=== PATIENT | male | born 1955 | race African-American/Black ===

== ENCOUNTER 2018-06-22 06:34 | Observation (INO) | payer MEDICARE ==
[2018-06-15 09:16] LABS: BASOPHILS % 0.5 % (0.0-1.0); EOSINOPHILS # (AUTO) 0.1 (0.0-0.4); EOSINOPHILS % 2.6 % (0.0-6.0); HEMATOCRIT 45.5 % (38.2-49.6); HEMOGLOBIN 16.1 g/dL (14.0-18.0); LYMPHOCYTES # (AUTO) 1.9 (1.0-3.2); LYMPHOCYTES % 47.7 % (18.0-39.1); MEAN CORPUSCULAR HEMOGLOBIN 33.6 pg (28-32); MEAN CORPUSCULAR HGB CONC 35.4 g/dL (31-35); MONOCYTES # (AUTO) 0.4 (0.2-0.8); MONOCYTES % 10.5 % (4.4-11.3); NEUTROPHILS # (AUTO) 1.5 (2.1-6.9); NEUTROPHILS % 38.4 % (38.7-80.0); PLATELET COUNT 124 x10e3/uL (140-360); RED BLOOD COUNT 4.79 x10e6/uL (4.3-5.7); RED CELL DISTRIBUTION WIDTH 11.5 % (11.7-14.4)
[2018-06-15 09:42] LABS: ANION GAP 12.3 mmol/L (8-16); BLOOD UREA NITROGEN 15 mg/dL (7-26); BUN/CREATININE RATIO 13 (6-25); CALCIUM 9.4 mg/dL (8.4-10.2); CARBON DIOXIDE 29 mmol/L (22-29); CHLORIDE 103 mmol/L (98-107); CREATININE, SERUM 1.15 mg/dL (0.72-1.25); EST GLOMERULAR FILTRATION RATE > 60 ML/MIN (60-); GLUCOSE 89 mg/dL (74-118); POTASSIUM 4.3 mmol/L (3.5-5.1); SODIUM 140 mmol/L (136-145)
--- NOTE | 2018-06-15 09:49 | Diagnostic Imaging Report ---
EXAMINATION: CHEST 2 VIEWS INDICATION: Prostate surgery. Preop COMPARISON: None FINDINGS: TUBES and LINES: None. LUNGS: Lungs are well inflated. Lungs are clear. There is no evidence of pneumonia or pulmonary edema. PLEURA: No pleural effusion or pneumothorax. HEART AND MEDIASTINUM: Postsurgical changes are seen to the heart with sternal hardware and cardiac metallic mesh/stent. The cardiomediastinal silhouette is otherwise unremarkable. BONES AND SOFT TISSUES: No acute osseous lesion. Soft tissues are unremarkable. UPPER ABDOMEN: No free air under the diaphragm. IMPRESSION: No acute thoracic abnormality. Signed by: Dr. Hitesh Spears M.D. on 06/15/2018 9:46 AM
[~2018-06-22] VITALS: Ht 162.6 cm; Wt 68.9 kg
--- OUTSIDE RECORDS SUMMARY | 2018-06-22 06:36 | XMS REPORT | Clinical Summary ---
Author Author [facility] Organization [facility] Address Unknown Phone Unavailable Care Team Providers Care Skin Washer Name Role Phone PCP Unavailable Allergies Comments Active Allergy Reactions Severity Noted Date No Known Allergies 06/14/2008 Medications End Date Status Medication Sig Dispensed Refills Start Date Active ASPIR-81 81 MG TAB take 1 tablet 0 (81 mg) by oral route once daily Active methocarbamol (ROBAXIN) Take by 60 Tab 4 750 mg tabletIndications: mouth. 1-2 1 Spasm of muscle tid prn muscle spasm Active metoprolol (TOPROL-XL) 25 Take by 30 tablet 6 07/22/ mg 24 hr delayed released mouth. 1/2 2 tabletIndications: Aortic pill once per valve disorder day Active loratadine (CLARITIN) 10 Take 1 tablet 90 tablet 3 mg tabletIndications: by mouth 2 Left otitis externa daily. Active omeprazole (PRILOSEC) 20 Take 1 90 capsule 0 mg delayed release capsule by 2 capsuleIndications: GERD mouth daily. (gastroesophageal reflux disease) Active triamcinolone (KENALOG) Apply to 80 g 0 0.025 % topical affected area 2 creamIndications: Penile 2 times discharge daily. Active tamsulosin (FLOMAX) 0.4 Take 1 30 capsule 0 mg extended release capsule by 8 capsuleIndications: mouth daily. Urinary retention Active flavoxATE (URISPAS) 100 Take 1 tablet 30 tablet 0 03/15/201 mg tabletIndications: by mouth 3 8 Urinary retention times daily as needed for Pain. Active Problems Problem Noted Date Urinary retention 03/15/2018 Aortic valve disorder 07/02/2009 History of stroke 07/02/2009 Allergic rhinitis 06/16/2009 Mood disorder 03/24/2009 Spasm of muscle 02/10/2009 Osteoarthrosis, shoulder region 02/10/2009 Completed stroke 06/14/2008 Cerebrovascular disorder 06/14/2008 Encounters Care Team Description Date Type Specialty Munir Piña PA Godoy, Guilherme, MD NO SHOW ENCOUNTER (Primary Dx) 04/25/2018 Office Visit Urology Shawn Pal MD Urinary retention (Primary Dx) 03/15/2018 Emergency Emergency Medicine after 06/21/2017 Immunizations Name Dates Previously Given Next Due Influenza Vaccine 03/08/2011 Family History Medical History Relation Name Comments Stroke Father Diabetes Maternal Grandmother Asthma Sister Hypertension Sister Relation Name Status Comments Father Alive Maternal Grandmother Mother UNKNOWN Sister Sister Social History Date Tobacco Use Types Packs/Day Years Used Never Smoker Smokeless Tobacco: Never Used Alcohol Use Drinks/Week oz/Week Comments No Sex Assigned at Date Recorded Not on file Industry Job Start Date Occupation Not on file Not on file Not on file Travel End Travel History Travel Start No recent travel history available. Last Filed Vital Signs Time Taken Vital Sign Reading 03/15/2018 6:23 PM CDT Blood Pressure 139/94 03/15/2018 6:23 PM CDT Pulse 107 03/15/2018 6:23 PM CDT Temperature 36.9 C (98.4 F) 03/15/2018 6:23 PM CDT Respiratory Rate 16 03/15/2018 6:23 PM CDT Oxygen Saturation 100% - Inhaled Oxygen - Concentration - Weight - - Height - - Body Mass Index - Plan of Treatment Health Maintenance Due Date Last Done Comments Colorectal Cancer Scrn 06/14/2009 06/14/2008 Annual (FIT/FOBT) Age 50 to 75 IMM Influenza Seasonal 02/20/2018Feb to July (>/=19 yrs) Procedures Comments Procedure Name Priority Date/Time Associated Diagnosis CT ABDOMEN AND PELVIS W/O STAT 03/15/2018 Urinary retention CONTRAST- RENAL STONE 2:56 PM CDT BMP POC Routine 03/15/2018 1:05 PM CDT URINE CULTURE STAT 03/15/2018 12:58 PM CDT UA CHEMISTRIES STAT 03/15/2018 12:58 PM CDT CBC/DIFF STAT 03/15/2018 12:50 PM CDT after 06/21/2017 Results * CT ABDOMEN AND PELVIS W/O CONTRAST- RENAL STONE (03/15/2018 2:56 PM CDT) Impressions Performed At IMPRESSION: SMS 1. Enlarged prostate. 2. No acute intra-abdominal abnormalities. 3. Advanced degenerative changes in the lower lumbar spine. Dictated By: Kodi Okeefe DO, 03/15/2018 3:39 PM I have reviewed the study and agree with the findings in this report. Signed By: Jose Antonio Allison MD, 03/15/2018 3:46 PM Narrative Performed At EXAM: CT Abdomen and Pelvis WITHOUT contrast SMS INDICATION: hematuria, urinary retention COMPARISON: None available O difficult distention of the recovery emphysema in a Thank you TECHNIQUE: Abdomen and pelvis were scanned utilizing a multidetector helical scanner from the lung base to the pubic symphysis without administration of IV contrast. Absence of intravenous contrast decreases sensitivity for detection of focal lesions and vascular pathology. Coronal and sagittal reformations were obtained. Routine protocol was performed. IV CONTRAST: None ORAL CONTRAST: None COMPLICATIONS: None RADIATION DOSE: Total DLP: 255 mGy*cm Estimated effective dose: (DLP x 0.015 x size factor) mSv CTDIvol has been reviewed. It is below the limits set by the Radiation Protocol Committee (RPC). FINDINGS: LINES and TUBES: Urinary bladder Horvath catheter in place. LOWER THORAX:Unremarkable HEPATOBILIARY:No focal hepatic lesions. No biliary ductal dilation. GALLBLADDER: No radio-opaque stones or sludge.No wall thickening. SPLEEN: No splenomegaly. PANCREAS: No focal masses or ductal dilatation.Mild nonspecific prominence of the pancreatic tail on image 7 series 2. ADRENALS: No adrenal nodules KIDNEYS/URETERS:Malrotated right kidney. No hydronephrosis. No cystic or solid mass lesions.No stones. GI TRACT: No abnormal distention, wall thickening, or evidence of bowel obstruction. Appendix is not clearly identified. There is however no fat stranding or adenopathy in the right lower quadrant to suggest appendicitis. PELVIC ORGANS/BLADDER: Post instrumentation air within the bladder. The prostate is enlarged measuring 5.1 cm in transverse dimension, and 6.2 cm in length. LYMPH NODES: No lymphadenopathy. VESSELS: Unremarkable. PERITONEUM / RETROPERITONEUM: Small fat-containing periumbilical hernia. BONES: Minimal anterolisthesis of L4 on L5. Minimal retrolisthesis of L5 on S1. Degenerative changes in the lower lumbar spine, with disc height loss and foraminal stenosis at L5-S1. SOFT TISSUES: Tiny fat-containing inguinal hernias. Procedure Note Interface, Rad/Mammog In - 03/15/2018 3:52 PM CDT EXAM: CT Abdomen and Pelvis WITHOUT contrast INDICATION: hematuria, urinary retention COMPARISON: None available O difficult distention of the recovery emphysema in a Thank you TECHNIQUE: Abdomen and pelvis were scanned utilizing a multidetector helical scanner from the lung base to the pubic symphysis without administration of IV contrast. Absence of intravenous contrast decreases sensitivity for detection of focal lesions and vascular pathology. Coronal and sagittal reformations were obtained. Routine protocol was performed. IV CONTRAST: None ORAL CONTRAST: None COMPLICATIONS: None RADIATION DOSE: Total DLP: 255 mGy*cm Estimated effective dose: (DLP x 0.015 x size factor) mSv CTDIvol has been reviewed. It is below the limits set by the Radiation Protocol Committee (RPC). FINDINGS: LINES and TUBES: Urinary bladder Horvath catheter in place. LOWER THORAX: Unremarkable HEPATOBILIARY: No focal hepatic lesions. No biliary ductal dilation. GALLBLADDER: No radio-opaque stones or sludge. No wall thickening. SPLEEN: No splenomegaly. PANCREAS: No focal masses or ductal dilatation. Mild nonspecific prominence of the pancreatic tail on image 7 series 2. ADRENALS: No adrenal nodules KIDNEYS/URETERS: Malrotated right kidney. No hydronephrosis. No cystic or solid mass lesions. No stones. GI TRACT: No abnormal distention, wall thickening, or evidence of bowel obstruction. Appendix is not clearly identified. There is however no fat stranding or adenopathy in the right lower quadrant to suggest appendicitis. PELVIC ORGANS/BLADDER: Post instrumentation air within the bladder. The prostate is enlarged measuring 5.1 cm in transverse dimension, and 6.2 cm in length. LYMPH NODES: No lymphadenopathy. VESSELS: Unremarkable. PERITONEUM / RETROPERITONEUM: Small fat-containing periumbilical hernia. BONES: Minimal anterolisthesis of L4 on L5. Minimal retrolisthesis of L5 on S1. Degenerative changes in the lower lumbar spine, with disc height loss and foraminal stenosis at L5-S1. SOFT TISSUES: Tiny fat-containing inguinal hernias. IMPRESSION IMPRESSION: 1. Enlarged prostate. 2. No acute intra-abdominal abnormalities. 3. Advanced degenerative changes in the lower lumbar spine. Dictated By: Kodi Okeefe DO, 03/15/2018 3:39 PM I have reviewed the study and agree with the findings in this report. Signed By: Jose Antonio Allison MD, 03/15/2018 3:46 PM Performing Organization Address [facility] Phone Number SMS * BMP POC (03/15/2018 1:05 PM CDT) CO2 POC 26 21 - 32 mmol/L [facility] 1 Chloride POC 103 98 - 107 mmol/L BT [facility] 1 Potassium POC 4.2 3.50 - 5.10 mmol/L BT [facility] 1 Sodium POC 140 136 - 145 mmol/L BT [facility] 1 Glucose POC 103 74 - 106 mg/dL [facility] 1 Urea Nitrogen 22 (H) 7 - 18 mg/dL [facility] POC 1 Creatinine POC 1.2 0.6 - 1.3 mg/dL [facility] 1 Calcium Ionized 1.17 1.15 - 1.29 mmol/L [facility] POC 1 Hemoglobin POC 18.4 (H) 14.0 - 18.0 g/dL [facility] 1 Hematocrit POC 54.0 40.0 - 54.0 % [facility] 1 GFR, Estimated >60 mL/min/1.73 m2 BT [facility] 1 GFR, Estim, >60 mL/min/1.73 m2 [facility] Afr-Am 1 Performing Organization Address [facility] Phone Number MISYS [facility] 1 * UA CHEMISTRIES (03/15/2018 12:58 PM CDT) Color Yellow [facility] 3 Clarity Clear BT [facility] 3 Spec [place] 1.020 1.001 - 1.035 BT [facility] 3 pH 9.0 (H) 5 - 8 BT [facility] 3 Protein 3+ (A) NEG BT [facility] 3 Glucose Negative NEG BT [facility] 3 Ketone Negative NEG BT [facility] 3 Bilirubin Negative NEG BT [facility] 3 Nitrate Negative NEG BT [facility] 3 Urobilinogen <1.0 0.2 - 1.0 EU/dL BT [facility] 3 Leukocyte Negative NEG BT [facility] 3 Blood 2+ (A) NEG BT [facility] 3 RBC >182 (H) 0 - 4 /HPF BT [facility] 3 WBC 4 0 - 5 /HPF BT [facility] 3 Epithelial Cell <1 /HPF BT [facility] 3 Mucous Present [facility] 3 Specimen Urine Performing Organization Address City/[facility]/Zipcode Phone Number MISYS [facility] 3 * URINE CULTURE (03/15/2018 12:58 PM CDT) Spec Catheterized urine BT MICROBIOLOGY Description Order Comments None BT MICROBIOLOGY Culture No growth 2 days BT MICROBIOLOGY Report Status Final 03/17/2018 BT MICROBIOLOGY Specimen Urine catheter - CATHETERIZED URINE Performing Organization Address City/[facility] Phone Number MISYS BT MICROBIOLOGY * CBC/DIFF (03/15/2018 12:50 PM CDT) WBC 6.4 4.5 - 12.0 K/uL BT [facility] 2 RBC 5.22 4.60 - 6.20 M/uL [facility] 2 Hemoglobin 17.4 14.0 - 18.0 g/dL BT [facility] 2 Hematocrit 49.7 40.0 - 54.0 % BT [facility] 2 MCV 95 (H) 82 - 92 fL BT [facility] 2 MCH 33.3 (H) 27.0 - 31.0 pg BT [facility] 2 MCHC 35.0 32.0 - 36.0 g/dL BT [facility] 2 RDW 44.0 (H) 35.1 - 43.9 fL BT [facility] 2 Platelet 114 (L) 150 - 400 K/uL BT [facility] 2 Mean Platelet 9.8 9.4 - 12.4 fL [facility] Volume 2 Percent NRBC 0.0 BT [facility] 2 Absolute NRBC 0.00 BT [facility] 2 Neutrophil 68.7 (H) 34.0 - 67.9 % BT [facility] 2 Lymphocyte 23.0 21.8 - 50.0 % BT [facility] 2 Monocyte 7.4 5.3 - 12.0 % BT [facility] 2 Eosinophil 0.3 (L) 0.8 - 5.0 % BT [facility] 2 Basophil 0.3 0.2 - 1.2 % BT [facility] 2 Pct Immat Gran 0.3 0.0 - 0.5 BT [facility] 2 Neutrophil, Abs 4.36 1.78 - 5.36 K/uL BT [facility] 2 Lymphocyte, Abs 1.46 1.32 - 3.57 K/uL BT [facility] 2 Monocyte, Abs 0.47 0.30 - 0.82 K/uL BT [facility] 2 Eosinophil, Abs 0.02 (L) 0.04 - 0.54 K/uL BT [facility] 2 Basophil, Abs 0.02 0.01 - 0.08 K/uL BT [facility] 2 Absol Immat 0.02 0.00 - 0.03 K/uL BT [facility] Gran 2 Specimen Blood Performing Organization Address City/State/Zipcode Phone Number MISYS [facility] 2 after 06/21/2017 Insurance Type Payer Benefit Subscriber ID Effective Phone Address Plan / Dates Group [facility] xxxxxxxx 2010-P [phone] [facility] [id number] [address] [address] [place] [address] HC SELF-PAY HC xxxxxxxxx 2012 [facility] [address]
--- OUTSIDE RECORDS SUMMARY | 2018-06-22 06:37 | XMS REPORT | Clinical Summary ---
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 8 Active azelastine 0.15 % (205.5 INHALE 2 0 mcg) spray,non-aerosol SPRAYS 8 NASALLY 2 TIMES A DAY Active fluticasone (FLONASE) 50 50 sprays by 0 mcg/actuation nasal spray Each Nare 8 route daily. 10/05/2018 Active aspirin 81 mg chewable Chew 1 tablet 30 tablet 11 tablet (81 mg total) 8 daily. 10/05/2018 Active metoprolol succinate XL Take 1 tablet 30 tablet 11 (TOPROL-XL) 25 mg 24 hr (25 mg total) 8 tablet by mouth daily. 09/07/2017 Discontinued valsartan (DIOVAN) 160 MG Take by 0 tablet mouth. 09/07/2017 Discontinued oxybutynin (DITROPAN) 5 Take by 0 MG tablet mouth. 09/07/2017 Discontinued diclofenac (CATAFLAM) 50 Take by 0 MG tablet mouth. 09/07/2017 Discontinued traMADol (ULTRAM) 50 mg Take by 0 tablet mouth. 10/04/2017 Discontinued metoprolol succinate XL Take 50 mg by 5 (TOPROL-XL) 50 mg 24 hr mouth daily. 8 tablet 10/11/2017 traMADol (ULTRAM) 50 mg Take 1 tablet 28 tablet 0 tablet (50 mg total) 8 by mouth every 6 (six) hours as needed for moderate pain for up to 7 days. Active Problems Problem Noted Date Aortic stenosis 09/30/2017 Acute blood loss anemia 09/30/2017 CVA, old, dysarthria 09/30/2017 S/P AVR (aortic valve replacement) 09/30/2017 Aortic valve stenosis 08/24/2017 Overview: Added automatically from request for surgery [id number] Arthritis 08/22/2017 Resolved Problems Problem Noted Date Resolved Date Severe aortic stenosis by prior echocardiogram 08/22/2017 08/24/2017 Encounters Care Team Description Date Type Specialty Albaro Stone DO Urinary retention due to benign prostatic hyperplasia (Primary Dx) 03/15/2018 Emergency Emergency Medicine - 03/16/2018 Edel Friedman, RN 11/10/2017 Orders Only Cardiovascular Kay Carr MD AVR, MICS APPROACH WITH SIZE MEDIUM FAMILIA PERVEVAL AORTIC VALVE CPT 65168 09/30/2017 Surgery Cardiothoracic Surgery Allyson Tierney, MARINE DRAFTER 09/30/2017 Anesthesia Cardiothoracic Surgery Event Kay Carr MD Aortic valve stenosis, etiology of cardiac valve disease unspecified 09/30/2017 Hospital Cardiovascular - Encounter 10/04/2017 Edel Friedman, SALLY 09/19/2017 Telephone Cardiovascular Kya Carr MD Nonrheumatic aortic valve stenosis; Pre-op evaluation; Preoperative respiratory examination 09/08/2017 Hospital Pulmonology Encounter Kay Carr MD Nonrheumatic aortic valve stenosis; Pre-op evaluation; Preoperative respiratory examination 09/08/2017 [facility] Pulmonology Encounter Kay Carr MD Nonrheumatic aortic valve stenosis; Pre-op evaluation 09/08/2017 Hospital Radiology Encounter Kay Carr MD Nonrheumatic aortic valve stenosis; Pre-op evaluation; Preoperative respiratory examination 09/08/2017 Hospital Pulmonology Encounter Kay Carr MD Nonrheumatic aortic valve stenosis; Pre-op evaluation; Aortic valve stenosis, etiology of cardiac valve disease unspecified 09/08/2017 Pre-Admit Pre-Admission Testing Testing Appointment Kay Carr MD Nonrheumatic aortic valve stenosis; Abnormal cardiovascular function study 09/08/2017 Hospital Procedural Cardiology Encounter Milton Morocho MA Aortic valve stenosis, etiology of cardiac valve disease unspecified (Primary Dx) 09/02/2017 Orders Only Cardiovascular Darleen Austin Aortic valve stenosis, etiology of cardiac valve disease unspecified (Primary Dx) 08/24/2017 Orders Only Milton Morocho MA 08/24/2017 Orders Only Cardiovascular Sahil Reid MD Aortic valve stenosis, etiology of cardiac valve disease unspecified (Primary Dx); Nonrheumatic aortic valve stenosis 08/23/2017 Multidisciplina Cardiology ry Visit Edel Friedman RN Nonrheumatic aortic valve stenosis (Primary Dx); Pre-op evaluation; Abnormal cardiovascular function study; Preoperative respiratory examination; Preoperative cardiovascular examination 08/23/2017 Orders Only Cardiovascular Nidia Rahman MD 07/29/2017 Hospital Procedural Cardiology Encounter Nidia Rahman MD Nonrheumatic aortic valve stenosis 07/28/2017 Hospital Procedural Cardiology Encounter Nidia Rahman MD Nonrheumatic aortic valve stenosis (Primary Dx) 07/22/2017 Transcribe Procedural Cardiology Orders Nidia Rahman MD 07/19/2017 Transcribe Access Orders after 06/21/2017 Family History Medical History Relation Name Comments Cancer Father Stroke Father Relation Name Status Comments Father Social History Date Tobacco Use Types Packs/Day Years Used Never Smoker Smokeless Tobacco: Never Used Alcohol Use Drinks/Week oz/Week Comments Yes 1-2 glasses of wine daily Sex Assigned at Date Recorded Not on file Industry Job Start Date Occupation Not on file Not on file Not on file Travel End Travel History Travel Start No recent travel history available. Last Filed Vital Signs Time Taken Vital Sign Reading 03/15/2018 9:45 PM CDT Blood Pressure 164/85 03/15/2018 9:45 PM CDT Pulse 113 03/15/2018 9:45 PM CDT Temperature 36.8 C (98.2 F) 03/15/2018 9:45 PM CDT Respiratory Rate 20 03/16/2018 12:43 AM CDT Oxygen Saturation 98% - Inhaled Oxygen - Concentration 10/03/2017 6:26 AM CDT Weight 65.5 kg (144 lb 8 oz) 03/15/2018 9:45 PM CDT Height 162.6 cm (5' 4") 10/03/2017 6:26 AM CDT Body Mass Index 24.8 Plan of Treatment Health Maintenance Due Date Last Done Comments COLON CANCER SCREENING 07/26/2007 SHINGLES VACCINES (1 of 07/26/2007 2) INFLUENZA VACCINE 12/21/2017 Implants Device Identifier Shelf Expiration Date Model / Serial / Lot Implanted Type Area Manufactur er 03/17/2019 [id number] / / Lead Pace Mycrdl Bipolar Coax Tmpry Cardiac N/A: N/A MEDTRONIC Streamline - [id number] Pacing [place] - Implanted: Qty: 1 on 09/30/2017 by Leads or CARDIAC Kay Carr MD Electrodes RYHTYM or MGMT Accessorie s 02/12/2020 [id number] / [id number] / [id number] Valve Perceval Medium 23mm - Cardiovasc N/A: N/A FAMILIA [id number] - [id number] ular GROUP Implanted: Qty: 1 on 09/30/2017 by Implants Kay Carr MD [id number] / / Sternal Drill-Free, Maxdrive IPM N/A: N/A MERCEDEZ LYNN Locking Screw 2.3mm X 11mm IMPLANT Ti-6al-4v Titanium Alloy - DEVICES [id number] Implanted: Qty: 8 on 09/30/2017 by Kay Carr MD [id number] / / 2.3 X 7mm Sternal Locking Screw - IPM N/A: N/A KLS SHANE [id number] IMPLANT Implanted: Qty: 1 on 09/30/2017 by DEVICES Kay Carr MD [id number] / / Plate, Lock, Sternal, 14 Holes - IPM N/A: N/A KLS SHANE [id number] IMPLANT Implanted: Qty: 1 on 09/30/2017 by DEVICES Kay Carr MD [id number] / / Clip Ligtng Daock Hemoclip Plus W/ Medical N/A: N/A WECK Tape Ti Med Lg - [id number] Clips for CLOSURE Implanted: 09/30/2017 (Quantity not Internal SYSTEMS on file) Use [id number] / / Clip Ligtng Weck Hemoclip Plus W/ Medical N/A: N/A TELEFLEX Tape Ti Med - [id number] Clips for MEDICAL Implanted: 09/30/2017 (Quantity not Internal on file) Use [id number] / / Clip Ligtng Weck Hemoclip Plus W/ Medical N/A: N/A TELEFLEX Tape Ti Med - [id number] Clips for MEDICAL Implanted: 09/30/2017 (Quantity not Internal on file) Use [id number] / / Clip Ligtng Weck Hemoclip Plus W/ Medical N/A: N/A WECK Tape Ti Sm Strngpnt - [id number] Clips for CLOSURE Implanted: 09/30/2017 (Quantity not Internal SYSTEMS on file) Use [id number] / / Clip Ligtng Weck Hemoclip Plus W/ Medical N/A: N/A WECK Tape Ti Sm Strngpnt - [id number] Clips for CLOSURE Implanted: 09/30/2017 (Quantity not Internal SYSTEMS on file) Use [id number] / / Clip Ligtng Weck Hemoclip Plus W/ Medical N/A: N/A TELEFLEX Tape Ti Lg - [id number] Clips for MEDICAL Implanted: 09/30/2017 (Quantity not Internal on file) Use 05/19/2022 [id number] / / [id number] [place] Perph Vasclr Ptfe 1.2x10cm Vascular N/A: N/A BARD 1.65mm - [id number] Graft PERIPHERAL Implanted: Qty: 1 on 09/30/2017 by Kay Mock MD 07/20/2022 [id number] / / [id number] [place] Perph Vasclr Ptfe 1.2x10cm Vascular N/A: N/A BARD 1.65mm - [id number] Graft PERIPHERAL Implanted: Qty: 1 on 09/30/2017 by Kay Mock MD 07/20/2022 [id number] / / [id number] [place] Perph Vasclr Ptfe 1.2x10cm Vascular N/A: N/A BARD 1.65mm - [id number] Graft PERIPHERAL Implanted: Qty: 1 on 09/30/2017 by Kay Mock MD Procedures Comments Procedure Name Priority Date/Time Associated Diagnosis ECHOCARDIOGRAM 2D Routine 10/03/2017 COMPLETE W MMODE SPECTRAL 5:20 PM CDT COLOR DOPPLER (73338) POC GLUCOSE Routine 10/03/2017 12:01 PM CDT MAGNESIUM LEVEL Routine 10/03/2017 9:49 AM CDT PHOSPHORUS LEVEL Routine 10/03/2017 9:49 AM CDT ZZESTIMATED GFR Routine 10/03/2017 9:49 AM CDT COMPREHENSIVE METABOLIC Routine 10/03/2017 PANEL 9:49 AM CDT SMEAR REVIEW Routine 10/03/2017 9:35 AM CDT HC COMPLETE BLD COUNT Routine 10/03/2017 W/AUTO DIFF 9:35 AM CDT POC GLUCOSE Routine 10/03/2017 7:14 AM CDT POC GLUCOSE Routine 10/02/2017 9:07 PM CDT XR CHEST 1 VW PORTABLE Routine 10/02/2017 6:39 PM CDT POC GLUCOSE Routine 10/02/2017 5:18 PM CDT POC GLUCOSE Routine 10/02/2017 2:19 PM CDT POC GLUCOSE Routine 10/02/2017 9:03 AM CDT XR CHEST 1 VW PORTABLE Routine 10/02/2017 7:06 AM CDT SMEAR REVIEW Routine 10/02/2017 6:49 AM CDT ZZESTIMATED GFR Routine 10/02/2017 6:49 AM CDT PHOSPHORUS LEVEL Routine 10/02/2017 6:49 AM CDT IONIZED CALCIUM Routine 10/02/2017 6:49 AM CDT MAGNESIUM LEVEL Routine 10/02/2017 6:49 AM CDT CBC HEMOGRAM Routine 10/02/2017 6:49 AM CDT BASIC METABOLIC PANEL Routine 10/02/2017 6:49 AM CDT POC GLUCOSE Routine 10/01/2017 9:30 PM CDT POC GLUCOSE Routine 10/01/2017 5:24 PM CDT CONSULT CARDIAC REHAB Routine 10/01/2017 PHASE 1 3:25 PM CDT POC GLUCOSE Routine 10/01/2017 11:28 AM CDT POC GLUCOSE Routine 10/01/2017 8:01 AM CDT ECG 12-LEAD Routine 10/01/2017 4:51 AM CDT XR CHEST 1 VW PORTABLE Routine 10/01/2017 4:30 AM CDT POC GLUCOSE Routine 10/01/2017 3:48 AM CDT ZZESTIMATED GFR Routine 10/01/2017 2:12 AM CDT IONIZED CALCIUM Routine 10/01/2017 2:12 AM CDT PHOSPHORUS LEVEL Routine 10/01/2017 2:12 AM CDT MAGNESIUM LEVEL Routine 10/01/2017 2:12 AM CDT BASIC METABOLIC PANEL Routine 10/01/2017 2:12 AM CDT PARTIAL THROMBOPLASTIN Routine 10/01/2017 TIME (PTT) 2:00 AM CDT PROTHROMBIN TIME WITH INR Routine 10/01/2017 2:00 AM CDT HC COMPLETE BLD COUNT Routine 10/01/2017 W/AUTO DIFF 2:00 AM CDT POC GLUCOSE Routine 10/01/2017 12:22 AM CDT MAGNESIUM LEVEL Routine 09/30/2017 10:11 PM CDT POTASSIUM LEVEL Routine 09/30/2017 10:11 PM CDT POC GLUCOSE Routine 09/30/2017 8:02 PM CDT POTASSIUM, SYRINGE Routine 09/30/2017 6:38 PM CDT POC GLUCOSE Routine 09/30/2017 3:59 PM CDT POTASSIUM, SYRINGE Routine 09/30/2017 3:00 PM CDT ECG 12-LEAD Routine 09/30/2017 2:13 PM CDT SURGICAL PATHOLOGY Routine 09/30/2017 REQUEST 12:59 PM CDT FIBRINOGEN Routine 09/30/2017 12:11 PM CDT PARTIAL THROMBOPLASTIN Routine 09/30/2017 TIME (PTT) 12:11 PM CDT PROTHROMBIN TIME WITH INR Routine 09/30/2017 12:11 PM CDT HC COMPLETE BLD COUNT Routine 09/30/2017 W/AUTO DIFF 12:11 PM CDT XR CHEST 1 VW PORTABLE Routine 09/30/2017 12:07 PM CDT POC GLUCOSE Routine 09/30/2017 12:03 PM CDT POC GLUCOSE Routine 09/30/2017 12:02 PM CDT IONIZED CALCIUM, ARTERIAL Routine 09/30/2017 12:00 PM CDT ARTERIAL BLOOD GAS Routine 09/30/2017 12:00 PM CDT HEPATITIS C ANTIBODY Routine 09/30/2017 11:55 AM CDT HEPATITIS BE AG Routine 09/30/2017 11:55 AM CDT HEPATITIS BE AB Routine 09/30/2017 11:55 AM CDT HEPATITIS B SURFACE Routine 09/30/2017 ANTIGEN 11:55 AM CDT HEPATITIS B CORE ANTIBODY Routine 09/30/2017 IGM 11:55 AM CDT HEPATITIS B SURFACE AB, Routine 09/30/2017 QUANTITATIVE 11:55 AM CDT HEPATITIS B CORE ANTIBODY Routine 09/30/2017 TOTAL 11:55 AM CDT ZZESTIMATED GFR Routine 09/30/2017 11:44 AM CDT PHOSPHORUS LEVEL Routine 09/30/2017 11:44 AM CDT MAGNESIUM LEVEL Routine 09/30/2017 11:44 AM CDT BASIC METABOLIC PANEL Routine 09/30/2017 11:44 AM CDT ANESTHESIA INTUBATION Routine 09/30/2017 11:26 AM CDT Procedure Note - Kannan Dickson MD - 09/30/2017 11:26 AM CDT Airway Performed by: KANNAN DICKSON V. Authorized by: KANNAN DICKSON V. Location: OR Difficult Airway: No Anesthesio logist: KANNAN DICKSON V. Resident/C RNA/AA: JERRY REDMOND Performed by: resident/C RNA/AA Preoxygena meenakshi with 100% O2: Yes C-spine Precaution s Maintained Throughout : Yes Mask Ventilatio n: Not attempted Final Airway Type: Endotrache al airway Final Endotrache al Airway: ETT Technique Used: Direct laryngosco py Devices/Me thods Used in Placement: Intubatin g stylet Insertion Site: Oral Blade Type: Mallory Laryngosco pe Blade/Vide olaryngosc ope Blade Size: 4 ETT Size (mm): 8.0 Measured from: Gums ETT to Gums (cm): 23 Placement Verified by: CO2 detection, direct visualizat ion and equal breath sounds Laryngosco pic view: Grade IIa - partial view of glottis Rapid Sequence Induction (RSI): No Modified RSI: No Number of Attempts at Approach: 1 PROTHROMBIN TIME WITH INR STAT 09/30/2017 11:11 AM CDT FIBRINOGEN STAT 09/30/2017 11:11 AM CDT LACTIC ACID, SYRINGE STAT 09/30/2017 11:10 AM CDT SODIUM LEVEL, SYRINGE STAT 09/30/2017 11:10 AM CDT ARTERIAL BLOOD GAS, STAT 09/30/2017 CORRECTED 11:10 AM CDT POTASSIUM, SYRINGE STAT 09/30/2017 11:10 AM CDT HEMOGLOBIN, SYRINGE STAT 09/30/2017 11:10 AM CDT IONIZED CALCIUM, ARTERIAL STAT 09/30/2017 11:10 AM CDT GLUCOSE LEVEL, SYRINGE STAT 09/30/2017 11:10 AM CDT TRANSFUSE PLATELETS Routine 09/30/2017 11:07 AM CDT TRANSFUSE PLATELETS Routine 09/30/2017 11:02 AM CDT ARTERIAL BLOOD GAS, STAT 09/30/2017 CORRECTED 10:27 AM CDT SODIUM LEVEL, SYRINGE STAT 09/30/2017 10:27 AM CDT GLUCOSE LEVEL, SYRINGE STAT 09/30/2017 10:27 AM CDT POTASSIUM, SYRINGE STAT 09/30/2017 10:27 AM CDT HEMOGLOBIN, SYRINGE STAT 09/30/2017 10:27 AM CDT IONIZED CALCIUM, ARTERIAL STAT 09/30/2017 10:27 AM CDT PA CATHETER Routine 09/30/2017 10:13 AM CDT Procedure Note - Mercedez [place] - 09/30/2017 10:13 AM CDT PA catheter Performed by: KANNAN DICKSON V. Authorized by: KANNAN DICKSON V. Patient Location: OR Start Time: 09/30/2017 7:40 AM End Time: 09/30/2017 7:45 AM Staff: Anesthesio logist: KANNAN DICKSON V. Other Staff: MERCEDEZ CAMARILLO Performed by: Other staff Preprocedu re: patient identified , IV checked, site and side verified, risks and benefits discussed, procedure verified, surgical consent complete, patient position confirmed, monitors and equipment checked and pre-op evaluation complete MSBT: antiseptic used, all elements of maximal sterile barrier technique followed, hand hygiene performed, cap/gown used by other personnel and solutions labeled TIme Out Performed: 09/30/2017 7:40 AM Procedure details: PA Catheter Type: VIDEO ENGINEER PA Catheter Size: 8.5 PA Catheter Side: Right PA Catheter Site: Internal jugular PA Catheter placed: PA Catheter placed without difficulty Waveform: PA Catheter wave confirmed Ports flushed: All ports flushed pre-proced ure Balloon checked: Balloon checked prior to insertion Post-proc edure: Patient tolerance: Patient tolerated the procedure well with no immediate complicati ons HEMATOCRIT STAT 09/30/2017 10:09 AM CDT PROTHROMBIN TIME WITH INR STAT 09/30/2017 10:09 AM CDT PLATELET COUNT STAT 09/30/2017 10:09 AM CDT FIBRINOGEN STAT 09/30/2017 10:09 AM CDT ARTERIAL BLOOD GAS, STAT 09/30/2017 CORRECTED 10:09 AM CDT SODIUM LEVEL, SYRINGE STAT 09/30/2017 10:09 AM CDT HEMOGLOBIN, SYRINGE STAT 09/30/2017 10:09 AM CDT POTASSIUM, SYRINGE STAT 09/30/2017 10:09 AM CDT GLUCOSE LEVEL, SYRINGE STAT 09/30/2017 10:09 AM CDT IONIZED CALCIUM, ARTERIAL STAT 09/30/2017 10:09 AM CDT CENTRAL LINE Routine 09/30/2017 9:23 AM CDT Procedure Note - Mercedez [place] - 09/30/2017 9:23 AM CDT Central line Performed by: KANNAN DICKSON V. Authorized by: KANNAN DICKSON V. Patient Location: OR Start Time: 09/30/2017 7:35 AM End Time: 09/30/2017 7:40 AM Staff: Anesthesio logist: KANNAN DICKSON V. Other Staff: MERCEDEZ CAMARILLO Performed by: Other staff Preprocedu re:patient identified , IV checked, site and side verified, risks and benefits discussed, procedure verified, surgical consent complete, patient position confirmed, monitors and equipment checked and pre-op evaluation complete MSBT: antiseptic used during central venous catheter insertion, all elements of maximal sterile barrier technique followed, hand hygiene performed prior to central venous catheter insertion, cap/gown used by other personnel during central venous catheter insertion, solutions labeled and all ports not used during insertion clamped TIme Out Performed: 09/30/2017 7:35 AM Indication s: Indication s: Central pressure monitoring and vascular access Anesthesia : Anesthesia : General Procedure details: Patient position: Trendelenb urg Catheter Type: Triple lumen Catheter Size: 9 Fr Catheter Site: internal jugular vein Catheter site laterality : Right Pre-proced ure: Landmarks identified Ultrasound guidance used: Yes Ultrasound image saved: Yes Number of attempts: 1 Successful placement: Yes Guidewire removal: Guidewire removal is confirmed Guidewire removal witnessed by: KANNAN DICKSON V. Post-proce dure: Post-proce dure: line sutured, sterile dressing applied per protocol and ports flushed with saline Post-proce dure: Blood cleaned with CHG and sterile caps on all hubs Assessment : Blood return through all ports and free fluid flow Patient tolerance: Patient tolerated the procedure well with no immediate complicati ons ARTERIAL BLOOD GAS, STAT 09/30/2017 CORRECTED 9:21 AM CDT POTASSIUM, SYRINGE STAT 09/30/2017 9:21 AM CDT SODIUM LEVEL, SYRINGE STAT 09/30/2017 9:21 AM CDT IONIZED CALCIUM, ARTERIAL STAT 09/30/2017 9:21 AM CDT HEMOGLOBIN, SYRINGE STAT 09/30/2017 9:21 AM CDT GLUCOSE LEVEL, SYRINGE STAT 09/30/2017 9:21 AM CDT ANESTHESIA SANDRA Routine 09/30/2017 8:51 AM CDT Procedure Note - Kannan Dickson MD - 09/30/2017 8:51 AM CDT Procedure Performed: SANDRA Start Time: End Time: Preanesth esia Checklist: Patient identified , IV assessed, risks and benefits discussed, monitors and equipment assessed, procedure being performed at surgeon's request, anesthesia consent obtained. General Procedure Informatio n Diagnostic Indication s for Echo: assessment of ascending aorta, assessment of surgical repair, defect repair evaluation , hemodynami c monitoring and suspected pericardia l effusion Physician Requesting Echo: NAA, KAY WILLIE Location performed: OR Intubated Bite block placed Heart visualized Probe Insertion: Easy Probe Type: Multiplane Modalities : 2D only, color flow mapping, continuous wave Doppler and pulse wave Doppler Echocardi ographic and Doppler Measuremen ts Ventricle s Right Ventricle: Cavity size normal. Hypertroph y not present. Thrombus not present. Global function normal. Left Ventricle: Cavity size normal. Hypertroph y present. Thrombus not present. Global Function normal. Ejection Fraction 55%. Ventricul ar Regional Function: 1- Basal Anterosept al: normal 2- Basal Anterior: normal 3- Basal Anterolate ral: normal 4- Basal Inferolate ral: normal 5- Basal Inferior: normal 6- Basal Inferosept al: normal 7- Mid Anterosept al: normal 8- Mid Anterior: normal 9- Mid Anterolate ral: normal 10- Mid Inferolate ral: normal 11- Mid Inferior: normal 12- Mid Inferosept al: normal 13- Apical Anterior: normal 14- Apical Lateral: normal 15- Apical Inferior: normal 16- Apical Septal: normal 17- [place]: normal Valves Aortic Valve: Annulus calcified. Stenosis severe. Regurgitat ion +3. Leaflets bicuspid. Leaflet motions restricted . Mitral Valve: Annulus normal. Stenosis not present. Regurgitat ion +1. Leaflets normal. Leaflet motions normal. Tricuspid Valve: Annulus normal. Stenosis not present. Regurgitat ion +1. Leaflets normal. Leaflet motions normal. Pulmonic Valve: Annulus normal. Stenosis not present. Aorta Ascending Aorta: Size normal. Dissection not present. Plaque thickness less than 3 mm. Mobile plaque not present. Aortic Arch: Size normal. Dissection not present. Plaque thickness less than 3 mm. Mobile plaque not present. Descending Aorta: Size normal. Dissection not present. Plaque thickness less than 3 mm. Mobile plaque not present. Atria Right Atrium: Size normal. Spontaneou s echo contrast not present. Thrombus not present. Tumor not present. Device not present. Left Atrium: Size normal. Spontaneou s echo contrast not present. Thrombus not present. Tumor not present. Device not present. Left atrial appendage normal. Septa Atrial Septum: Intra-atri al septal morphology normal. Ventricul ar Septum: Intra-vent ricular septum morphology normal. Diastolic Function Measuremen ts: Diastolic Dysfunctio n Grade=I E=30.9 ms A=65 ms E/A Ratio=0.5 YA=036 ms S/D= IVRT= Other Findings Pericardiu m: normal Pleural Effusion: none Pulmonary Arteries: normal Pulmonary Venous Flow: normal Anesthesi a Informatio n Performed with residents Anesthesio logist: KANNAN DICKSON V. Resident/ PILL COATER/AA: MARTHA HUGGINS Echocardi ogram Comments: LVEF normal. EF 60%. There is concentric LVH. RVEF normal There is a bicuspid aortic valve with severe . Mean PG 57 mmhg. There is moderate AI, AI jet is 50% of LVOT, VC 5 mm. P1/2T 400 Mild MR, Mild TR. No PI There is no PFO There is no clot in DARNELL. There is no pleural effusion, pericardia l effusion or aortic dissection There is Grade I diastolic dysfunctio n. Postproce dure SANDRA - s/p MICS AVR - perceval valve #medium - no PVL, leaflets open well , mn gradient 7 mm HG, aorta intact postdecann ulation, other valves no changes Findings discussed with surgeon ARTERIAL LINE Routine 09/30/2017 8:03 AM CDT Procedure Note - Mercedez [place] - 09/30/2017 8:03 AM CDT Arterial line Performed by: KANNAN DICKSON V. Authorized by: KANNAN DICKSON V. Patient Location: Pre-op Start Time: 09/30/2017 6:50 AM End Time: 09/30/2017 6:55 AM Staff: Anesthesio logist: KANNAN DICKSON V. Resident/C RNA/AA: JERRY REDMOND Other Staff: MERCEDEZ CAMARILLO Pre-proced ure: patient identified , IV checked, site and side verified, risks and benefits discussed, procedure verified, surgical consent complete, patient position confirmed, monitors and equipment checked and pre-op evaluation complete MSBT: antiseptic used, all elements of maximal sterile barrier technique followed, hand hygiene performed, cap/gown used by other personnel and solutions labeled TIme Out Performed: 09/30/2017 6:38 AM Indication s: Indication s: multiple ABGs and hemodynami c monitoring Anesthesia : Anesthesia : Local infiltrati on Procedure Details: Arterial Line placement: Placed pre-induct ion Line placement site: Radial Line placement side: Right Arterial line gauge: 20 G Number of attempts: 2 Ultrasound guidance used: No Post-proce dure: Post-proce dure: Sterile dressing applied Post procedure circulatio n, sensation, movement: Normal Patient tolerance: Patient tolerated the procedure well with no immediate complicati ons Notes: One attempt by AA student one by resident SODIUM LEVEL, SYRINGE STAT 09/30/2017 7:58 AM CDT ARTERIAL BLOOD GAS, STAT 09/30/2017 CORRECTED 7:58 AM CDT POTASSIUM, SYRINGE STAT 09/30/2017 7:58 AM CDT HEMOGLOBIN, SYRINGE STAT 09/30/2017 7:58 AM CDT IONIZED CALCIUM, ARTERIAL STAT 09/30/2017 7:58 AM CDT GLUCOSE LEVEL, SYRINGE STAT 09/30/2017 7:58 AM CDT TN AN ELECTIVE Routine 09/30/2017 ENDOTRACHEAL AIRWAY 7:47 AM CDT Procedure Note - [place] - 09/30/2017 7:47 AM CDT Airway Date/Time: 09/30/2017 7:32 AM Performed by: KANNAN DICKSON V. Authorized by: KANNAN DICKSON V. Location: OR Urgency: Elective Difficult Airway: No Anesthesio logist: KANNAN DICKSON V. Resident/C RNA/AA: JERRY REDMOND Preoxygena meenakshi with 100% O2: Yes C-spine Precaution s Maintained Throughout : Yes Mask Ventilatio n: Easy mask Final Airway Type: Endotrache al airway Final Endotrache al Airway: ETT - double lumen left Cuffed: Yes Technique Used: Direct laryngosco py Devices/Me thods Used in Placement: Intubatin g stylet Insertion Site: Oral Blade Type: Mallory Laryngosco pe Blade/Vide olaryngosc ope Blade Size: 3 ETT Double Lumen (fr): 39 Cuff at minimum occlusion pressure: Yes Measured from: Lips ETT to Lips (cm): 29 Placement Verified by: CO2 detection Laryngosc opic view: Grade IIa - partial view of glottis Rapid Sequence Induction (RSI): No Number of Attempts at Approach: 2 PREPARE PLATELET PHERESIS STAT 09/30/2017 6:32 AM CDT PREPARE RBC STAT 09/30/2017 6:32 AM CDT TYPE AND SCREEN STAT 09/30/2017 6:32 AM CDT XR CHEST 2 VW Routine 09/08/2017 Nonrheumatic aortic valve 12:57 PM CDT stenosis Pre-op evaluation RETICULOCYTE COUNT Routine 09/08/2017 Aortic valve stenosis, 12:10 PM CDT etiology of cardiac valve disease unspecified HEMOGLOBIN, PLASMA Routine 09/08/2017 Aortic valve stenosis, 12:10 PM CDT etiology of cardiac valve disease unspecified B NATRIURETIC PEPTIDE Routine 09/08/2017 Nonrheumatic aortic valve 12:10 PM CDT stenosis Pre-op evaluation URINALYSIS SCREEN AND Routine 09/08/2017 Nonrheumatic aortic valve MICROSCOPY, WITH REFLEX 12:00 PM CDT stenosis TO CULTURE Pre-op evaluation URINE CULTURE Routine 09/08/2017 12:00 PM CDT ZZESTIMATED GFR Routine 09/08/2017 11:26 AM CDT TYPE AND SCREEN Routine 09/08/2017 Nonrheumatic aortic valve 11:26 AM CDT stenosis Pre-op evaluation HEMOGLOBIN A1C Routine 09/08/2017 Nonrheumatic aortic valve 11:26 AM CDT stenosis Pre-op evaluation PARTIAL THROMBOPLASTIN Routine 09/08/2017 Nonrheumatic aortic valve TIME (PTT) 11:26 AM CDT stenosis Pre-op evaluation PROTHROMBIN TIME WITH INR Routine 09/08/2017 Nonrheumatic aortic valve 11:26 AM CDT stenosis Pre-op evaluation COMPREHENSIVE METABOLIC Routine 09/08/2017 Nonrheumatic aortic valve PANEL 11:26 AM CDT stenosis Pre-op evaluation HC COMPLETE BLD COUNT Routine 09/08/2017 Nonrheumatic aortic valve W/AUTO DIFF 11:26 AM CDT stenosis Pre-op evaluation LDH Routine 09/08/2017 Aortic valve stenosis, 11:20 AM CDT etiology of cardiac valve disease unspecified HAPTOGLOBIN Routine 09/08/2017 Aortic valve stenosis, 11:20 AM CDT etiology of cardiac valve disease unspecified VITAMIN B12 LEVEL Routine 09/08/2017 Nonrheumatic aortic valve 11:20 AM CDT stenosis Pre-op evaluation TOTAL IRON BINDING Routine 09/08/2017 Nonrheumatic aortic valve CAPACITY 11:20 AM CDT stenosis Pre-op evaluation LIPID PANEL Routine 09/08/2017 Nonrheumatic aortic valve 11:20 AM CDT stenosis Pre-op evaluation FOLATE LEVEL Routine 09/08/2017 Nonrheumatic aortic valve 11:20 AM CDT stenosis Pre-op evaluation FERRITIN LEVEL Routine 09/08/2017 Nonrheumatic aortic valve 11:20 AM CDT stenosis Pre-op evaluation US CAROTID DUPLEX Routine 09/08/2017 Nonrheumatic aortic valve BILATERAL 10:24 AM CDT stenosis Pre-op evaluation Preoperative cardiovascular examination CV CTA TAVR WORKUP (CTA Routine 09/08/2017 Nonrheumatic aortic valve CORONARY,CTA THORACIC 9:38 AM CDT stenosis AORTA,CTA ABDOMEN PELVIS) Abnormal cardiovascular W CONTRAST function study ESTIMATED GFR Routine 09/08/2017 9:02 AM CDT POC CREATININE Routine 09/08/2017 9:02 AM CDT ECG 12-LEAD Routine 08/23/2017 Aortic valve stenosis, 2:09 PM CDT etiology of cardiac valve disease unspecified ECHOCARDIOGRAM 2D Routine 07/29/2017 Nonrheumatic aortic valve 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 Stat.:[facility] Study Status:Final Echo Event ID:[id number] Order ID:[id number] Reason for Study:Prosthetic valves/ AV History / Clinical:Dizziness Procedures:2D Echo, Colorflow Doppler Race:C SUMMARY: LV EF is normal. Septal motion is paradoxical. Beat to beat variability/ tachycardia noted; Estimated EF is 50-60%. Unable to assess RV systolic function. Bioprosthetic aortic valve. Normal Bioprosthetic valve velocity and gradient. Unable to assess diastolic function. FINDINGS: LV: LV size is normal. There is moderate concentric LV hypertrophy.LV EF is normal. Overall wall motion is normal.Estimated EF is 50-60%. Septal motion is paradoxical.Beat to beat variability/ tachycardia noted; RV: RV size is grossly normal. Unable to assess RV systolic function. LA: LA size is grossly normal. RA: RA volume is upper limits of normal. AO: Aortic root diameter is normal. JEEVAN: No pericardial effusion. Extra echoes within the pericardial spacesuggesting presence of adipose tissue or fibro-adhesivematerial. AV: Bioprosthetic aortic valve. Normal Bioprosthetic valve velocityand gradient. Surgical Prosthetic AV Doppler velocityindex is 0.37 (normal>0.25). MV: Mild mitral annular calcification. PV: No structural PV abnormalities noted. Mild pulmonic regurgitation. TV: No structural TV abnormalities noted. Mild tricuspid regurgitation Renteria: Unable to assess diastolic function. Other:Insufficient TR jet to estimate PA systolic pressure. MEASUREMENTS: 2D Parasternal Long Peosta LVOT 2 cmLA Ds3.1 cm LVIDd3.4 cmIndex2 cm/m Ao An1.9 cm LVIDs2.2 cmAo Rtd 3.1 cm Index1.8 cm/m LV%fs 34.9 % LV Weya797.5 g(122-174) IVSd 1.6 cmLVM Pgfba238.6 g/m2 LVPWd1.8 cmRWT1.1 LA Sng Plane LA Area 13.6 cm2(8.8-23.4) LA Vol25.9 ml Index15.2 ml/m LA LngAx 5.9 cm RA Sng Plane RA Area 17.6 cm2(8.3-19.5) RA Vol48.7 ml Index28.6 ml/m RA LngAx 5.3 cm DOPPLER AV For Flow/CORETTA AV pkVel 277.5 cm/s (100-170) AV AC/ET 0.5 AV mnVel 185.8 cm/Celeste TVI38.1 cm AV pkPG 30.8 mmHgAVpkAcRt 4198.8 cm/s2 AV Mean G 17.1 mmHgAV PvDq9732.5 cm/s2 AV AC 94 msec (83-118) AV Area1.2 cm2(3-5) AV ET205 msec LVOT For Flow LVOT Area3.1 cm2 LVOT SV 44.3 ml LVOTpkVel 94.7 cm/sHR 110.7 bpm LVOTpkPG 3.6 mmHgLVOT CO4.9 l/min LVOTmnPG 2.2 mmHgLVOT CI2.9 l/m/m2 LVOT TVI14.1 cm Signed 10/04/2017 09:53 AM Majo Oquendo MD Procedure Note Interface, Radiology Results In - 10/04/2017 9:53 AM CDT Echocardiography Report [address] [place] [address] Pat.Name: LEROY BOLAÑOS Pat.ID: [id number] .Date: 10/03/2017 Refer.MD: KAY CARR MD Exam Time: 2:10:00 PM Study Type:Routine Echo Height: 64in Weight: 144lb BSA: 1.7 m2 Age: 5 1955,62Y Sex: MALE BP: 113/68 HR: 113 bpm Sonogrphr: LIVAN Blackburn Pat. Stat.:Inpatient Room: [facility] Study Status:Final Echo Event ID:[id number] Order ID: [id number] Reason for Study:Prosthetic valves/ AV History / Clinical:Dizziness Procedures:2D Echo, Colorflow Doppler Race: C SUMMARY: LV EF is normal. Septal motion is paradoxical. Beat to beat variability/ tachycardia noted; Estimated EF is 50-60%. Unable to assess RV systolic function. Bioprosthetic aortic valve. Normal Bioprosthetic valve velocity and gradient. Unable to assess diastolic function. FINDINGS: LV: LV size is normal. There is moderate concentric LV hypertrophy. LV EF is normal. Overall wall motion is normal. Estimated EF is 50-60%. Septal motion is paradoxical. Beat to beat variability/ tachycardia noted; RV: RV size is grossly normal. Unable to assess RV systolic function. LA: LA size is grossly normal. RA: RA volume is upper limits of normal. AO: Aortic root diameter is normal. JEEVAN: No pericardial effusion. Extra echoes within the pericardial space suggesting presence of adipose tissue or fibro-adhesive material. AV: Bioprosthetic aortic valve. Normal Bioprosthetic valve velocity and gradient. Surgical Prosthetic AV Doppler velocity index is 0.37 (normal>0.25). MV: Mild mitral annular calcification. PV: No structural PV abnormalities noted. Mild pulmonic regurgitation. TV: No structural TV abnormalities noted. Mild tricuspid regurgitation Renteria: Unable to assess diastolic function. Other: Insufficient TR jet to estimate PA systolic pressure. MEASUREMENTS: 2D Parasternal Long Peosta LVOT 2 cm LA Ds 3.1 cm LVIDd 3.4 cm Index 2 cm/m Ao An 1.9 cm LVIDs 2.2 cm Ao Rtd 3.1 cm Index 1.8 cm/m LV%fs 34.9 % LV Mass 225.5 g (122-174) IVSd 1.6 cm LVM Index 132.6 g/m2 LVPWd 1.8 cm RWT 1.1 LA Sng Plane LA Area 13.6 cm2 (8.8-23.4) LA Vol 25.9 ml Index 15.2 ml/m LA LngAx 5.9 cm RA Sng Plane RA Area 17.6 cm2 (8.3-19.5) RA Vol 48.7 ml Index 28.6 ml/m RA LngAx 5.3 cm DOPPLER AV For Flow/CORETTA AV pkVel 277.5 cm/s (100-170) AV AC/ET 0.5 AV mnVel 185.8 cm/s AV TVI 38.1 cm AV pkPG 30.8 mmHg AVpkAcRt 4198.8 cm/s2 AV Mean G 17.1 mmHg AV DeRt 1352.5 cm/s2 AV AC 94 msec (83-118) AV Area 1.2 cm2 (3-5) AV ET 205 msec LVOT For Flow LVOT Area 3.1 cm2 LVOT SV 44.3 ml LVOTpkVel 94.7 cm/s HR 110.7 bpm LVOTpkPG 3.6 mmHg LVOT CO 4.9 l/min LVOTmnPG 2.2 mmHg LVOT CI 2.9 l/m/m2 LVOT TVI 14.1 cm Signed 10/04/2017 09:53 AM Majo Oquendo MD Performing Organization Address [facility] Phone Number [address] [address] * POC glucose (10/03/2017 12:01 PM CDT) Only the most recent of 16 results within the time period is included. POC glucose 104 (H) 65 - 99 mg/dL [facility] DEPARTMENT OF Comment: PATHOLOGY [facility] Notified RN GENOMIC MEDICINE Meter ID: [id number] Casserole Preparer: Kwadwo Cat Performing Organization Address [facility] Phone Number [facility] [place] [address] PATHOLOGY AND GENOMIC MEDICINE * Estimated GFR (10/03/2017 9:49 AM CDT) Only the most recent of 5 results within the time period is included. GFR Non Af Amer 68 mL/min/1.73 m2 [facility] DEPARTMENT OF PATHOLOGY AND GENOMIC MEDICINE GFR Af Amer 83 mL/min/1.73 m2 [facility] DEPARTMENT OF Comment: PATHOLOGY AND Chronic kidney disease: <60 GENOMIC MEDICINE mL/min/1.73m2 Kidney failure: <15 mL/min/1.73m2 The estimated GFR is calculated from the IDMS-traceable Modification of Diet in Renal Disease Equation. The accuracy of the calculation is poor when the creatinine is normal. Calculated values >90 mL/min/1.73m2 are not reported. This equation has not been validated in children (<18 years), women, the elderly (>70 years), or ethnic groups other than Caucasians and Americans. Specimen Plasma specimen Performing Organization Address [facility] Phone Number [facility] [place] [place] [address] PATHOLOGY AND GENOMIC MEDICINE * Phosphorus level (10/03/2017 9:49 AM CDT) Only the most recent of 4 results within the time period is included. Phosphorus 1.4 (L) 2.4 - 4.5 mg/dL [facility] DEPARTMENT OF PATHOLOGY AND GENOMIC MEDICINE Specimen Plasma specimen Narrative Performed At added MG/PHOS per Chente Bowers COMM[employer] 10/03/2017 10:55 by COUNT INCLUDES THE [facility] DEPARTMENT OF PATHOLOGY AND GENOMIC MEDICINE Performing Organization Address City/[facility] Hospital[facility] [place] [address] PATHOLOGY AND GENOMIC [facility] * Magnesium level (10/03/2017 9:49 AM CDT) Only the most recent of 5 results within the time period is included. Magnesium 1.9 1.6 - 2.4 mg/dL [facility] DEPARTMENT OF PATHOLOGY AND GENOMIC MEDICINE Specimen Plasma specimen Narrative Performed At added MG/PHOS per Chente Bowers [employer] 10/03/2017 10:55 by COUNT INCLUDES THE [facility] DEPARTMENT OF PATHOLOGY AND GENOMIC MEDICINE Performing Organization Address [facility] Hospital[facility] [place] [address] PATHOLOGY AND SED Web [facility] * Comprehensive metabolic panel (10/03/2017 9:49 AM CDT) Only the most recent of 2 results within the time period is included. Sodium 135 135 - 148 mEq/L [facility] DEPARTMENT OF PATHOLOGY AND GENOMIC MEDICINE Potassium 4.4 3.5 - 5.0 mEq/L [facility] DEPARTMENT OF PATHOLOGY AND GENOMIC MEDICINE Chloride 96 (L) 98 - 112 mEq/L [facility] DEPARTMENT OF PATHOLOGY AND GENOMIC MEDICINE CO2 27 24 - 31 mEq/L [facility] DEPARTMENT OF PATHOLOGY AND GENOMIC MEDICINE Anion gap 12@ANIO 7 - 15 mEq/L [facility] DEPARTMENT OF PATHOLOGY AND GENOMIC MEDICINE BUN 17 8 - 23 mg/dL [facility] DEPARTMENT OF PATHOLOGY AND GENOMIC MEDICINE Creatinine 1.1 0.7 - 1.2 mg/dL [facility] DEPARTMENT OF PATHOLOGY AND GENOMIC MEDICINE Glucose 188 (H) 65 - 99 mg/dL [facility] DEPARTMENT OF PATHOLOGY AND GENOMIC MEDICINE Calcium 9.1 8.8 - 10.2 mg/dL [facility] DEPARTMENT OF PATHOLOGY AND GENOMIC MEDICINE Protein 6.7 6.3 - 8.3 g/dL [facility] DEPARTMENT OF Comment: PATHOLOGY AND GENOMIC MEDICINE 4.6-7.0 g/dL 1 week 4.4-7.6 g/dL 7 months-1year 5.1-7.3 g/dL 1-2 years5.6-7 .5 g/dL >3 years6.0-8 .0 g/dL 18-150 6.3-8.3 g/dL Albumin 2.9 (L) 3.5 - 5.0 g/dL [facility] DEPARTMENT OF PATHOLOGY AND GENOMIC MEDICINE A/G ratio 0.8 0.7 - 3.8 [facility] DEPARTMENT OF PATHOLOGY AND GENOMIC MEDICINE Alkaline phosphatase 38 (L) 40 - 129 U/L [facility] DEPARTMENT OF PATHOLOGY AND GENOMIC MEDICINE AST 36 10 - 50 U/L [facility] DEPARTMENT OF PATHOLOGY AND GENOMIC MEDICINE ALT 19 5 - 50 U/L [facility] DEPARTMENT OF PATHOLOGY AND GENOMIC MEDICINE Total bilirubin 0.9 0.0 - 1.2 mg/dL [facility] DEPARTMENT OF PATHOLOGY AND GENOMIC MEDICINE Specimen Plasma specimen Performing Organization Address City/[facility] Hospital[facility] [place] [address] PATHOLOGY AND GENOMIC MEDICINE * Smear review (10/03/2017 9:35 AM CDT) Only the most recent of 2 results within the time period is included. Platelet slide review Mkd decreased (A) [facility] DEPARTMENT OF PATHOLOGY AND GENOMIC MEDICINE Anisocytosis Moderate [facility] DEPARTMENT OF PATHOLOGY AND GENOMIC MEDICINE Polychromasia Moderate [facility] DEPARTMENT OF PATHOLOGY AND GENOMIC MEDICINE Ovalocytes Moderate [facility] DEPARTMENT OF PATHOLOGY AND GENOMIC MEDICINE Narrative Performed At added MG/PHOS per Chente Bowers COMMISS[employer]ER [employer]IATION 10/03/2017 10:55 by COUNT INCLUDES THE [facility] DEPARTMENT OF PATHOLOGY AND GENOMIC MEDICINE Performing Organization Address City/[facility] Phone Number [facility] DEPARTMENT OF [address] [place], [place] [phone] PATHOLOGY AND GENOMIC MEDICINE * CBC with platelet and differential (10/03/2017 9:35 AM CDT) Only the most recent of 4 results within the time period is included. WBC 8.09 4.50 - 11.00 k/uL [facility] DEPARTMENT OF PATHOLOGY AND GENOMIC MEDICINE RBC 3.50 (L) 4.40 - 6.00 m/uL [facility] DEPARTMENT OF PATHOLOGY AND GENOMIC MEDICINE HGB 11.7 (L) 14.0 - 18.0 g/dL [facility] DEPARTMENT OF PATHOLOGY AND GENOMIC MEDICINE HCT 34.0 (L) 41.0 - 51.0 % [facility] DEPARTMENT OF PATHOLOGY AND GENOMIC MEDICINE MCV 97.1 82.0 - 100.0 fL [facility] DEPARTMENT OF PATHOLOGY AND GENOMIC MEDICINE MCH 33.4 27.0 - 34.0 pg [facility] DEPARTMENT OF PATHOLOGY AND GENOMIC MEDICINE MCHC 34.4 31.0 - 37.0 g/dL [facility] DEPARTMENT OF PATHOLOGY AND GENOMIC MEDICINE RDW - SD 40.7 37.0 - 55.0 fL [facility] DEPARTMENT OF PATHOLOGY AND GENOMIC MEDICINE MPV 11.6 8.8 - 13.2 fL [facility] DEPARTMENT OF PATHOLOGY AND GENOMIC MEDICINE Platelet count 29 (L) 150 - 400 k/uL [facility] DEPARTMENT OF PATHOLOGY AND GENOMIC MEDICINE Nucleated RBC 0.00 /100 WBC [facility] DEPARTMENT OF PATHOLOGY AND GENOMIC MEDICINE Neutrophils 79.6 (H) 39.0 - 69.0 % [facility] DEPARTMENT OF PATHOLOGY AND GENOMIC MEDICINE Lymphocytes 12.6 (L) 25.0 - 45.0 % [facility] DEPARTMENT OF PATHOLOGY AND GENOMIC MEDICINE Monocytes 7.0 0.0 - 10.0 % [facility] DEPARTMENT OF PATHOLOGY AND GENOMIC MEDICINE Eosinophils 0.2 0.0 - 5.0 % [facility] DEPARTMENT OF PATHOLOGY AND GENOMIC MEDICINE Basophils 0.2 0.0 - 1.0 % [facility] DEPARTMENT OF PATHOLOGY AND GENOMIC MEDICINE Immature granulocytes 0.4Comment: "Immature 0.0 - 1.0 % [facility] DEPARTMENT OF granulocytes" (promyelocytes, PATHOLOGY AND myelocytes, metamyelocytes) GENOMIC MEDICINE Performing Organization Address City/[facility] Phone Number [facility] DEPARTMENT [address] [address] PATHOLOGY AND GENOMIC MEDICINE * XR Chest 1 Vw Portable (10/02/2017 6:39 PM CDT) Only the most recent of 4 results within the time period is included. Narrative Performed At Examination: XR CHEST 1 VW PORTABLE RADIANT Clinical history: Chest Tube Removal Comparison: 6:40 AM Impression: 1. Right-sided chest tube has been removed. There is no visible pneumothorax. 2. Appearance of the chest is otherwise unchanged. [facility]-[id number] Procedure Note Interface, Radiology Results Incoming - 10/02/2017 6:45 PM CDT Examination: XR CHEST 1 VW PORTABLE Clinical history: Chest Tube Removal Comparison: 6:40 AM Impression: 1. Right-sided chest tube has been removed. There is no visible pneumothorax. 2. Appearance of the chest is otherwise unchanged. [facility]-[id number] Performing Organization Address City/[facility] Phone Number [facility] [address] [place] [address] * CBC hemogram (10/02/2017 6:49 AM CDT) WBC 15.31 (H) 4.50 - 11.00 k/uL [facility] DEPARTMENT OF PATHOLOGY AND GENOMIC MEDICINE RBC 3.73 (L) 4.40 - 6.00 m/uL [facility] DEPARTMENT OF PATHOLOGY AND GENOMIC MEDICINE HGB 12.9 (L) 14.0 - 18.0 g/dL [facility] DEPARTMENT OF PATHOLOGY AND GENOMIC MEDICINE HCT 37.1 (L) 41.0 - 51.0 % [facility] DEPARTMENT OF PATHOLOGY AND GENOMIC MEDICINE MCV 99.5 82.0 - 100.0 fL [facility] DEPARTMENT OF PATHOLOGY AND GENOMIC MEDICINE MCH 34.6 (H) 27.0 - 34.0 pg [facility] DEPARTMENT OF PATHOLOGY AND GENOMIC MEDICINE MCHC 34.8 31.0 - 37.0 g/dL [facility] DEPARTMENT OF PATHOLOGY AND GENOMIC MEDICINE RDW - SD 42.5 37.0 - 55.0 fL [facility] DEPARTMENT OF PATHOLOGY AND GENOMIC MEDICINE MPV 11.8 8.8 - 13.2 fL [facility] DEPARTMENT OF PATHOLOGY AND GENOMIC MEDICINE Platelet count 32 (L)Comment: Results double 150 - 400 k/uL [facility] DEPARTMENT OF checked. PATHOLOGY AND GENOMIC MEDICINE Nucleated RBC 0.00 /100 WBC [facility] DEPARTMENT OF PATHOLOGY AND GENOMIC MEDICINE Specimen Blood Performing Organization Address City/[facility]/Zipcode [place] [address] PATHOLOGY AND GENOMIC MEDICINE * Ionized calcium (10/02/2017 6:49 AM CDT) Only the most recent of 2 results within the time period is included. pH 7.45 [facility] DEPARTMENT OF PATHOLOGY AND GENOMIC MEDICINE Ionized calcium 1.12 1.11 - 1.32 mmol/L [facility] DEPARTMENT OF PATHOLOGY AND GENOMIC MEDICINE Specimen Plasma specimen Performing Organization Address City/[facility]/Zipcode [place] [address] PATHOLOGY AND GENOMIC MEDICINE * Basic metabolic panel (10/02/2017 6:49 AM CDT) Only the most recent of 3 results within the time period is included. Sodium 133 (L) 135 - 148 mEq/L [facility] DEPARTMENT OF PATHOLOGY AND GENOMIC MEDICINE Potassium 5.2 (H) 3.5 - 5.0 mEq/L [facility] DEPARTMENT OF PATHOLOGY AND GENOMIC MEDICINE Chloride 94 (L) 98 - 112 mEq/L [facility] DEPARTMENT OF PATHOLOGY AND GENOMIC MEDICINE CO2 29 24 - 31 mEq/L [facility] DEPARTMENT OF PATHOLOGY AND SED Web MEDICINE Anion gap 10 7 - 15 mEq/L [facility] DEPARTMENT OF Comment: PATHOLOGY AND Starting from August [facility] , anion gap calculation no longer incorporates potassium. Please note the change. BUN 10 8 - 23 mg/dL [facility] DEPARTMENT OF PATHOLOGY AND SED Web MEDICINE Creatinine 0.9 0.7 - 1.2 mg/dL [facility] DEPARTMENT OF PATHOLOGY AND SED Web MEDICINE Glucose 139 (H) 65 - 99 mg/dL [facility] DEPARTMENT OF PATHOLOGY AND SED Web MEDICINE Calcium 9.5 8.8 - 10.2 mg/dL [facility] DEPARTMENT OF PATHOLOGY AND SED Web MEDICINE Specimen Plasma specimen Performing Organization Address City/[facility] Phone Number [place] [phone] [place] [address] PATHOLOGY AND [facility] * ECG 12 lead (10/01/2017 4:51 AM CDT) Only the most recent of 3 results within the time period is included. Ventricular rate 90 [facility]USE Atrial rate 90 [facility] MUSE [place] interval 198 [facility] MUSE QRSD interval 124 [facility] QT interval 378 [facility] QTC interval 462 [facility] MUSE P axis 1 68 [facility] QRS axis 1 27 [facility] T wave axis 24 [facility] EKG impression Sinus rhythm with occasional [facility] MUSE premature ventricular complexes-Right bundle branch block-Voltage criteria for left ventricular hypertrophy-ST elevation, consider early repolarization, pericarditis, or injury-Abnormal ECG-In automated comparison with ECG of 30-SEP-2017 14:13,-premature ventricular complexes are now present-ST elevation now present in Anterolateral leads-T wave inversion no longer evident in Anterior leads- Performing Organization Address City/[facility]/Zipcode Phone Number [facility] [address] [place] [address] * Partial thromboplastin time, activated (10/01/2017 2:00 AM CDT) Only the most recent of 3 results within the time period is included. PTT 32.2 23.0 - 36.0 sec [facility] DEPARTMENT OF Comment: PATHOLOGY AND PTT therapeutic range for [facility] unfractionated heparin is 61.0-112.0 seconds which corresponds to Anti-Xa 0.3-0.7 U/ml. Specimen Blood Performing Organization Address City/[facility] [place] [address] PATHOLOGY AND GENOMIC MEDICINE * Prothrombin time with INR (10/01/2017 2:00 AM CDT) Only the most recent of 5 results within the time period is included. Prothrombin time 15.9 (H) 12.0 - 15.0 sec [facility] DEPARTMENT OF PATHOLOGY AND GENOMIC MEDICINE INR 1.2 [facility] DEPARTMENT OF Comment: PATHOLOGY AND The International Normalized GENOMIC MEDICINE Ratio (INR) is a therapeutic monitoring tool for patients who are stable on oral anticoagulant therapy. An INR of 2.0-3.0 is suggested for deep vein thrombosis/pulmonary embolism. Specimen Blood Performing Organization Address [facility] Hospital[facility] [place] [address] PATHOLOGY AND GENOMIC MEDICINE * Potassium level (09/30/2017 10:11 PM CDT) Potassium 4.9 3.5 - 5.0 mEq/L [facility] DEPARTMENT OF PATHOLOGY AND GENOMIC MEDICINE Specimen Plasma specimen Performing Organization Address [facility] [place] [address] PATHOLOGY AND GENOMIC MEDICINE * Potassium, syringe (09/30/2017 6:38 PM CDT) Only the most recent of 7 results within the time period is included. Potassium, syringe 4.6 3.5 - 5.0 mEq/L [facility] DEPARTMENT OF PATHOLOGY AND GENOMIC MEDICINE Specimen Blood Performing Organization Address City/[facility] [place] [address] PATHOLOGY AND GENOMIC MEDICINE * Surgical pathology request (09/30/2017 12:59 PM CDT) [facility] DEPARTMENT OF PATHOLOGY AND GENOMIC MEDICINE Surgical pathology report See link below for PDF Lab [facility] DEPARTMENT OF Report PATHOLOGY AND GENOMIC MEDICINE Result status This is Final Report to [facility] DEPARTMENT OF [id number] PATHOLOGY AND GENOMIC MEDICINE Performing Organization Address City/[facility] Hospital[facility] [place] [address] PATHOLOGY AND GENOMIC MEDICINE * Fibrinogen (09/30/2017 12:11 PM CDT) Only the most recent of 3 results within the time period is included. Fibrinogen 190 (L) 200 - 450 mg/dL [facility] DEPARTMENT OF PATHOLOGY AND GENOMIC MEDICINE Specimen Blood Performing Organization Address City/[facility] Hospital[place] [address] PATHOLOGY AND [facility] * Ionized calcium, arterial (09/30/2017 12:00 PM CDT) Only the most recent of 6 results within the time period is included. Ionized calcium, arterial 1.03 (L) 1.11 - 1.32 mmol/L [facility] DEPARTMENT PATHOLOGY AND GENOMIC MEDICINE Specimen Blood Performing Organization Address City/[facility] Hospital[place] [address] PATHOLOGY AND [facility] * Arterial blood gas (09/30/2017 12:00 PM CDT) pH, arterial 7.39 7.35 - 7.45 [facility] DEPARTMENT OF PATHOLOGY AND GENOMIC MEDICINE pCO2, arterial 36 35 - 45 mmHg [facility] DEPARTMENT OF PATHOLOGY AND GENOMIC MEDICINE pO2, arterial 267 (H) 80 - 90 mmHg [facility] DEPARTMENT OF PATHOLOGY AND GENOMIC MEDICINE Bicarbonate, arterial 21.6 21.0 - 28.0 mmol/L [facility] DEPARTMENT OF PATHOLOGY AND GENOMIC MEDICINE Base excess, arterial -2 -2 - 2 mEq/L [facility] DEPARTMENT OF PATHOLOGY AND GENOMIC MEDICINE O2 saturation, arterial 100 95 - 100 % [facility] DEPARTMENT OF PATHOLOGY AND GENOMIC MEDICINE Specimen Blood Performing Organization Address City/[facility] Hospital[facility] Phone Number [facility] [place] [place] [address] PATHOLOGY AND [employer] [facility] * Hepatitis B surface Ab, quantitative (09/30/2017 11:55 AM CDT) Hepatitis B surface Ab 17.30 IU/L [facility] Comment: The anti-HBs is greater than or equal to 10 IU/L. This patient has either had an antibody response to HBV vaccination, received a transfusion, or has recovered from HBV infection. This patient should be considered immune to hepatitis B. An anti-HBs result greater than or equal to 10 IU/L implies immunity. For post-vaccination antibody testing guidelines for the general public refer to MMWR May 14, 2005/Vol. 54(No. 16);1-23, and for healthcare workers refer to MMWR May 11, 2013/Vol. 62(No. 10);1-19. Reference Interval: anti-HBs 9.99 IU/L or less ....... Negative 10.00 IU/L or greater .... Positive Results greater than 1,000.00 IU/L are reported as greater than 1,000.00 IU/L. This assay should not be used for blood donor screening, associated re-entry protocols, or for screening Human Cell, Tissues and Cellular and Tissue-Based Products (HCT/P). Performed by [facility], [address] [place] [id number] [email or web address], Jos Rucker MD - Lab. Director Specimen Serum Performing Organization Address [facility] Hospital[facility]oks Phone Number [facility] [address] [place] [phone] * Hepatitis C antibody (09/30/2017 11:55 AM CDT) Hepatitis C Ab Non-reactive Non-reactive [facility] DEPARTMENT OF PATHOLOGY AND GENOMIC MEDICINE Specimen Blood Performing Organization Address [facility] Hospitalcode [place] [address] PATHOLOGY AND GENOMIC MEDICINE * Hepatitis Be Ab (09/30/2017 11:55 AM CDT) Hepatitis Be Ab Positive (A) Negative [facility] Comment: The anti-HBe is repeatedly reactive, which is consistent with recent or remote Hepatitis B infection. Anti-HBe can be present in a small proportion of chronic HBV infections, but its presence usually indicates resolution. If HBeAg is also positive, this may represent the transition between the appearance of anti-HBe and decline of HBeAg, and retesting in one month may be useful. Performed by [facility], [address] [place] [address] [id number] [email or web address], Jos Rucker MD - Lab. Director Specimen Serum Performing Organization Address [facility]code Phone Number [facility] [address] [place] [address] * Hepatitis B core antibody IgM (09/30/2017 11:55 AM CDT) Hepatitis B core IgM Reactive (A) Non-reactive [facility] DEPARTMENT OF PATHOLOGY AND GENOMIC MEDICINE Specimen Blood Performing Organization Address [facility]/Zipcode Phone Number [facility] [address] PATHOLOGY AND [facility] * Hepatitis B core antibody total (09/30/2017 11:55 AM CDT) Hepatitis B core total Ab Reactive (A) Non-reactive [facility] DEPARTMENT OF PATHOLOGY AND GENOMIC MEDICINE Specimen Blood Performing Organization Address City/[facility]code Phone Number [facility] [place] [address] PATHOLOGY AND [facility] * Hepatitis Be Ag (09/30/2017 11:55 AM CDT) Hepatitis Be Ag Negative Negative [facility] Comment: Performed by [facility], [address] [place] [address] [email or web address], Jos Rucker MD - Lab. Director Specimen Serum Performing Organization Address [facility]code Phone Number [facility] [address] [place] [address] * Hepatitis B surface antigen (09/30/2017 11:55 AM CDT) Hepatitis B surface Ag Non-reactive Non-reactive [facility] DEPARTMENT PATHOLOGY AND GENOMIC MEDICINE Specimen Blood Performing Organization Address City/[facility]code Phone Number [facility] [place] [place] [address] PATHOLOGY [facility] * Sodium level, syringe (09/30/2017 11:10 AM CDT) Only the most recent of 5 results within the time period is included. Sodium, syringe 134 (L) 135 - 148 mEq/L [facility] DEPARTMENT OF PATHOLOGY AND GENOMIC MEDICINE Specimen Blood Performing Organization Address City/[facility] Phone Number [facility] [place] [place] [address] PATHOLOGY AND [facility] * Lactic acid, syringe (09/30/2017 11:10 AM CDT) Lactic acid, syringe 1.4 0.5 - 2.2 mmol/L [facility] DEPARTMENT PATHOLOGY AND GENOMIC MEDICINE Specimen Blood Performing Organization Address City/[facility]code Phone Number [facility] [place] [address] PATHOLOGY [facility] * Hemoglobin, syringe (09/30/2017 11:10 AM CDT) Only the most recent of 5 results within the time period is included. Hemoglobin, syringe 10.5 (L) 14.0 - 18.0 g/dL [facility] DEPARTMENT OF PATHOLOGY AND GENOMIC MEDICINE Specimen Blood Performing Organization Address City/[facility] Hospital[facility] [place] [address] PATHOLOGY AND GENOMIC MEDICINE * Glucose level, syringe (09/30/2017 11:10 AM CDT) Only the most recent of 5 results within the time period is included. Glucose, syringe 144 (H) 65 - 99 mg/dL [facility] DEPARTMENT OF PATHOLOGY AND GENOMIC MEDICINE Specimen Blood Performing Organization Address [facility] [place] [address] PATHOLOGY AND GENOMIC MEDICINE * Arterial blood gas, corrected (09/30/2017 11:10 AM CDT) Only the most recent of 5 results within the time period is included. pH, arterial 7.39 7.35 - 7.45 [facility] DEPARTMENT OF PATHOLOGY AND GENOMIC MEDICINE pCO2, arterial 36 35 - 45 mmHg [facility] DEPARTMENT OF PATHOLOGY AND GENOMIC MEDICINE pO2, arterial 372 (H) 80 - 90 mmHg [facility] DEPARTMENT OF PATHOLOGY AND GENOMIC MEDICINE Temperature, Celsius 37.0 Degrees C [facility] DEPARTMENT OF PATHOLOGY AND GENOMIC MEDICINE O2 saturation, arterial 99 95 - 100 % [facility] DEPARTMENT OF PATHOLOGY AND GENOMIC MEDICINE pH, arterial corrected 7.39 [facility] DEPARTMENT OF PATHOLOGY AND GENOMIC MEDICINE pCO2, arterial corrected 36 mmHg [facility] DEPARTMENT OF PATHOLOGY AND GENOMIC MEDICINE pO2, arterial corrected 372 mmHg [facility] DEPARTMENT OF PATHOLOGY AND GENOMIC MEDICINE Base excess, arterial -2 -2 - 2 mEq/L [facility] DEPARTMENT OF PATHOLOGY AND GENOMIC MEDICINE Specimen Blood Performing Organization Address [facility] [place] [address] PATHOLOGY AND GENOMIC MEDICINE * Platelet count (09/30/2017 10:09 AM CDT) Platelet count 56 (L) 150 - 400 k/uL [facility] DEPARTMENT OF PATHOLOGY AND GENOMIC MEDICINE Performing Organization Address [facility] Hospital[place] [address] PATHOLOGY AND GENOMIC MEDICINE * Hematocrit (09/30/2017 10:09 AM CDT) HCT 25.6 (L) 41.0 - 51.0 % [facility] DEPARTMENT OF PATHOLOGY AND GENOMIC MEDICINE Performing Organization Address City/State/Zipcode Phone Number [facility] DEPARTMENT OF [address] [place] [address] PATHOLOGY AND GENOMIC MEDICINE * Prepare platelet pheresis (09/30/2017 6:32 AM CDT) Product name Apheresis Platelet Leukored #2 [facility] DEPARTMENT OF PATHOLOGY AND GENOMIC MEDICINE Unit number [id number] [facility] DEPARTMENT OF PATHOLOGY AND GENOMIC MEDICINE Product code [id number] [facility] DEPARTMENT OF PATHOLOGY AND GENOMIC MEDICINE Dispense status Transfused [facility] DEPARTMENT OF PATHOLOGY AND GENOMIC MEDICINE Blood expiration date [facility] DEPARTMENT OF PATHOLOGY AND GENOMIC MEDICINE Blood type code 9500 [facility] DEPARTMENT OF PATHOLOGY AND GENOMIC MEDICINE Blood type O NEGATIVE [facility] DEPARTMENT OF PATHOLOGY AND GENOMIC MEDICINE Product name Apheresis Platelet ACDA LRIRR [facility] DEPARTMENT OF #1 PATHOLOGY AND GENOMIC MEDICINE Unit number [id number] [facility] DEPARTMENT OF PATHOLOGY AND GENOMIC MEDICINE Product code [id number] [facility] DEPARTMENT OF PATHOLOGY AND GENOMIC MEDICINE Dispense status Transfused [facility] DEPARTMENT OF PATHOLOGY AND GENOMIC MEDICINE Blood expiration date [facility] DEPARTMENT OF PATHOLOGY AND GENOMIC MEDICINE Blood type code 6200 [facility] DEPARTMENT OF PATHOLOGY AND GENOMIC MEDICINE Blood type A POSITIVE [facility] DEPARTMENT OF PATHOLOGY AND GENOMIC MEDICINE Performing Organization Address City/State/Zipcode Phone Number [address] [address] PATHOLOGY AND GENOMIC MEDICINE * Prepare RBC (09/30/2017 6:32 AM CDT) Product name Red Blood Cells -1, Leukored [facility] DEPARTMENT OF PATHOLOGY AND GENOMIC MEDICINE Unit number [id number] [facility] DEPARTMENT OF PATHOLOGY AND GENOMIC MEDICINE Product code [id number] [facility] DEPARTMENT OF PATHOLOGY AND GENOMIC MEDICINE Dispense status Returned to BB not transfused [facility] DEPARTMENT OF PATHOLOGY AND GENOMIC MEDICINE Blood expiration date [facility] DEPARTMENT OF PATHOLOGY AND GENOMIC MEDICINE Blood type code 5100 [facility] DEPARTMENT OF PATHOLOGY AND GENOMIC MEDICINE Blood type O POSITIVE [facility] DEPARTMENT OF PATHOLOGY AND GENOMIC MEDICINE Product name Red Blood Cells -1, Leukored [facility] DEPARTMENT OF PATHOLOGY AND GENOMIC MEDICINE Unit number [id number] [facility] DEPARTMENT OF PATHOLOGY AND GENOMIC MEDICINE Product code [id number] [facility] DEPARTMENT OF PATHOLOGY AND GENOMIC MEDICINE Dispense status Returned to BB not transfused [facility] DEPARTMENT OF PATHOLOGY AND GENOMIC MEDICINE Blood expiration date [facility] DEPARTMENT OF PATHOLOGY AND GENOMIC MEDICINE Blood type code 5100 [facility] DEPARTMENT OF PATHOLOGY AND GENOMIC MEDICINE Blood type O POSITIVE [facility] DEPARTMENT OF PATHOLOGY AND GENOMIC MEDICINE Performing Organization Address City/[facility] Phone Number [facility] DEPARTMENT OF [address] [place] [phone] PATHOLOGY AND GENOMIC MEDICINE * Type and screen (09/30/2017 6:32 AM CDT) Only the most recent of 2 results within the time period is included. ABO grouping O [facility] DEPARTMENT OF PATHOLOGY AND GENOMIC MEDICINE Rh type POS [facility] DEPARTMENT OF PATHOLOGY AND GENOMIC MEDICINE Antibody screen (gel) NEG [facility] DEPARTMENT OF PATHOLOGY AND GENOMIC MEDICINE Specimen Blood Performing Organization Address [facility] Phone Number [facility] DEPARTMENT OF [address] [place] [address] PATHOLOGY AND GENOMIC MEDICINE * XR Chest 2 Vw (09/08/2017 12:57 PM CDT) Narrative Performed At EXAMINATION:XR CHEST 2 VW RADIANT CLINICAL HISTORY:62 years Male I35.0 Nonrheumatic aortic (valve) stenosis, Z01.818 Encounter for other preprocedural examination, aortic stenosispreop evaluation [facility] COMPARISON:None IMPRESSION: 1.Heart size and central vasculature are normal. 2.The lungs are clear. 3.Mild degenerative change in the spine. [facility]-[id number] Procedure Note Hm Interface, Radiology Results Incoming - 09/08/2017 1:05 PM CDT EXAMINATION: XR CHEST 2 VW CLINICAL HISTORY:62 years Male I35.0 Nonrheumatic aortic (valve) stenosis, Z01.818 Encounter for other preprocedural examination, aortic stenosis preop evaluation [facility] COMPARISON: None IMPRESSION: 1. Heart size and central vasculature are normal. 2. The lungs are clear. 3. Mild degenerative change in the spine. [facility]-[id number] Performing Organization Address City/[facility] Phone Number [facility] [address] [place] [address] * Reticulocyte count (09/08/2017 12:10 PM CDT) Retic %, auto 2.2 (H) 0.5 - 2.1 % [facility] DEPARTMENT OF PATHOLOGY AND GENOMIC MEDICINE Retic absolute, auto 0.1001 0.0220 - 0.1260 m/uL [facility] DEPARTMENT OF PATHOLOGY AND GENOMIC MEDICINE Specimen Blood Performing Organization Address City/[facility]/Zipcode Phone Number [address] [address] PATHOLOGY AND GENOMIC MEDICINE * B natriuretic peptide (09/08/2017 12:10 PM CDT) BNP 231 (H) 0 - 100 pg/mL [facility] DEPARTMENT OF PATHOLOGY AND GENOMIC MEDICINE Specimen Blood Performing Organization Address City/[facility]/Zipcode Phone Number [address] [address] PATHOLOGY AND GENOMIC MEDICINE * Hemoglobin, plasma (09/08/2017 12:10 PM CDT) Hemoglobin, plasma 8.5 0.0 - 9.7 mg/dL [facility] Comment: Performed by [facility], [address] [place], [place] [id number] [email or web address], Jos Rucker MD - Lab. Director Specimen Plasma specimen Performing Organization Address City/[facility]/Zipcode Phone Number [facility] [address] [place] [address] * Urinalysis screen and microscopy, with reflex to culture (09/08/2017 12:00 PM CDT) Specimen site Clean catch [facility] DEPARTMENT OF PATHOLOGY AND GENOMIC MEDICINE Color, UA Straw [facility] DEPARTMENT OF PATHOLOGY AND GENOMIC MEDICINE Appearance, UA Clear [facility] DEPARTMENT OF PATHOLOGY AND GENOMIC MEDICINE Specific gravity, UA 1.048 (H) 1.001 - 1.035 [facility] DEPARTMENT OF PATHOLOGY AND GENOMIC MEDICINE pH, UA 6.0 5.0 - 8.5 [facility] DEPARTMENT OF PATHOLOGY AND GENOMIC MEDICINE Protein, UA Negative Negative [facility] DEPARTMENT OF PATHOLOGY AND GENOMIC MEDICINE Glucose, UA Negative Negative [facility] DEPARTMENT OF PATHOLOGY AND GENOMIC MEDICINE Ketones, UA Negative Negative [facility] DEPARTMENT OF PATHOLOGY AND GENOMIC MEDICINE Bilirubin, UA Negative Negative [facility] DEPARTMENT OF PATHOLOGY AND GENOMIC MEDICINE Blood, UA Negative Negative [facility] DEPARTMENT OF PATHOLOGY AND GENOMIC MEDICINE Nitrite, UA Negative Negative [facility] DEPARTMENT OF PATHOLOGY AND GENOMIC MEDICINE Urobilinogen, UA <2.0 <2.0 [facility] DEPARTMENT OF PATHOLOGY AND GENOMIC MEDICINE Leukocyte esterase, UA Negative Negative [facility] DEPARTMENT OF PATHOLOGY AND GENOMIC MEDICINE Epithelial cells, UA <1 /HPF [facility] DEPARTMENT OF PATHOLOGY AND GENOMIC MEDICINE WBC, UA <1 0 - 1 /HPF [facility] DEPARTMENT OF PATHOLOGY AND GENOMIC MEDICINE RBC, UA 1 0 - 5 /HPF [facility] DEPARTMENT OF PATHOLOGY AND GENOMIC MEDICINE Bacteria, UA None seen None seen [facility] DEPARTMENT OF PATHOLOGY AND GENOMIC MEDICINE Yeast, UA None seen [facility] DEPARTMENT OF PATHOLOGY AND GENOMIC MEDICINE Yeast with pseudohyphae, None seen [facility] DEPARTMENT OF UA PATHOLOGY AND GENOMIC MEDICINE Specimen Urine Performing Organization Address City/[facility] Phone Number [facility] [place] [place] [address] PATHOLOGY AND GENOMIC MEDICINE * Urine culture (09/08/2017 12:00 PM CDT) Urine culture SEE COMMENTComment: [facility] DEPARTMENT OF Bacteriuria screen negative. PATHOLOGY AND GENOMIC MEDICINE Performing Organization Address City/[facility]/Zipcode Phone Number [facility] [place] [place] [address] PATHOLOGY AND GENOMIC MEDICINE * Hemoglobin A1c (09/08/2017 11:26 AM CDT) Hemoglobin A1C 4.4 4.0 - 5.6 % [facility] DEPARTMENT OF Comment: PATHOLOGY AND HbA1c cutoffs for diagnosing GENOMIC MEDICINE diabetes: 4.0% - 5.6%=normal 5.7% - 6.4%=increased risk for diabetes (prediabetes) >=6.5%=diabetes Goals for glycemic control (ADA 2016) < 7.0%Target for non adults with diabetes. More or less stringent targets may be appropriate for individual patients. <7.5% Target for Children and adolescents with type 1 diabetes. Specimen Blood Performing Organization Address [facility] Hospital[facility] [place] [address] PATHOLOGY AND GENOMIC MEDICINE * Total iron binding capacity (09/08/2017 11:20 AM CDT) Iron level 75 59 - 158 ug/dL [facility] DEPARTMENT OF PATHOLOGY AND GENOMIC MEDICINE Iron binding capacity 256 200 - 400 ug/dL [facility] DEPARTMENT OF PATHOLOGY AND GENOMIC MEDICINE % Saturation 29.3 20.0 - 40.0 % [facility] DEPARTMENT OF PATHOLOGY AND GENOMIC MEDICINE Specimen Plasma specimen Performing Organization Address City/[facility]/Zipcode [place] [address] PATHOLOGY AND GENOMIC MEDICINE * LDH (09/08/2017 11:20 AM CDT) LDH 235 (H) 87 - 225 U/L [facility] DEPARTMENT OF PATHOLOGY AND GENOMIC MEDICINE Specimen Plasma specimen Performing Organization Address City/[facility]/Zipcode Phone Number [facility] [place] [address] PATHOLOGY AND GENOMIC MEDICINE * Haptoglobin (09/08/2017 11:20 AM CDT) Haptoglobin <10 (L) 30 - 200 mg/dL [facility] DEPARTMENT OF PATHOLOGY AND GENOMIC MEDICINE Specimen Plasma specimen Performing Organization Address City/[facility] Phone Number [facility] [place] [place] [address] PATHOLOGY AND GENOMIC MEDICINE * Folate level (09/08/2017 11:20 AM CDT) Folate 6.6 4.8 - 24.2 ng/mL [facility] DEPARTMENT OF PATHOLOGY AND GENOMIC MEDICINE Specimen Serum Performing Organization Address City/[facility] [place] [address] PATHOLOGY AND GENOMIC MEDICINE * Ferritin level (09/08/2017 11:20 AM CDT) Ferritin level 150 30 - 400 ng/mL [facility] DEPARTMENT OF PATHOLOGY AND GENOMIC MEDICINE Specimen Plasma specimen Performing Organization Address City/[facility] Phone Number [facility] [place] [address] PATHOLOGY AND GENOMIC MEDICINE * Vitamin B12 level (09/08/2017 11:20 AM CDT) Vitamin B12 575 211 - 946 pg/mL [facility] DEPARTMENT OF Comment: PATHOLOGY AND Significant overlap exists GENOMIC MEDICINE between normal and deficiency states. However, most patients with deficiencies will have Serum B12 <200 pg/mL. Specimen Serum Performing Organization Address [facility] [place] [address] PATHOLOGY AND GENOMIC MEDICINE * Lipid panel (09/08/2017 11:20 AM CDT) Cholesterol 177 <200 mg/dL [facility] DEPARTMENT OF PATHOLOGY AND GENOMIC MEDICINE Triglycerides 75 <150 mg/dL [facility] DEPARTMENT OF PATHOLOGY AND GENOMIC MEDICINE HDL cholesterol 82 >40 mg/dL [facility] DEPARTMENT OF PATHOLOGY AND GENOMIC MEDICINE LDL cholesterol 106 (H)Comment: Result <100 mg/dL [facility] DEPARTMENT OF obtained by direct LDL PATHOLOGY AND measurement GENOMIC MEDICINE Lipid panel SeeBelow [facility] DEPARTMENT OF interpretation Comment: PATHOLOGY AND Total Cholesterol GENOMIC MEDICINE (mg/dL) <200 Desirable 200-239Borderline -high >=240High Triglycerides (mg/dL) <150 Normal 150-199Borderline -high 200-499High >=500Very high HDL Cholesterol (mg/dL) <40Low (male) <40Low (female) LDL Cholesterol (mg/dL) <100 Optimal 100-129Near or above optimal 130-159Borderline -high 160-189High >=190Very high Risk Catergories that modify LDL goals. Risk Catergories LDL goal (mg/dL) CHD and CHD risk equivalent<100 (10-year risk >20%) Multiple (2+) risk factors <130 (10-year risk=<20%) 0-1 risk factors <160 (<10-year risk) Defining levels of lipids in metabolic syndrome Triglycerides >=150 mg/dL HDL Cholesterol Men <40 mg/dL Women <40 mg/dL Non-HDL cholesterol is a second target for therapy in persons with high triglycerides (>=200 mg/dL) Specimen Plasma specimen Performing Organization Address City/State/Zipcode Phone Number [facility] DEPARTMENT OF [address] [place] [address] PATHOLOGY AND GENOMIC MEDICINE * Us carotid duplex (09/08/2017 10:24 AM CDT) Narrative Performed At [facility] Carotid Duplex Report [address] [place], [place] For quality improvement coordinator (rn) purposes, the categorization of the degree of the stenosis of this exam is based on criteria described in the IAC carotid stenosis grading white paper( www.intersocietal.org/Vascular) and in Yael Lakhani., Muna Medina., et al. Carotid artery stenosis: cruz-scale and Doppler US diagnosis--Society of Radiologists in Ultrasound Consensus Conference. Radiology. 2003 Nov; 229(2):340-6. Pat.Name:LEROY BOLAÑOS Pat.ID:[id number] .Date: 09/08/2017 Refer.MD:KYA CARR MD Exam Time: 9:39:00 AMStudy Type:Carotid DOBAge:1955,62YSex: MALE Sonogrphr: Eun Maldonado RN, RVT CPT - 4: 11811 Echo Event ID:[id number] Order ID:[id number] Reason for Study:Pre op CV exam for aortic stenosis. Race:C SUMMARY: CAROTID ARTERY SCAN RIGHT:There is intimal thickening throughout the common carotid artery and bulb. The internal and external carotid artery are clear. The internal carotid artery is tortuous. Colorflow is normal.There is antegrade flow in the vertebral artery. Elevated velocities with colorflow disturbance in the subclavian artery suggests stenosis. LEFT:There is intimal thickening throughout the common carotid artery and bulb.The internal and external carotid artery are clear. The internal carotid artery is tortuous. Colorflow is normal. The left vertebral artery is not seen, however, the vein is readily identified. PRELIMINARY FINDINGS 1.Intimal thickening in the common carotid artery and bulb, bilaterally. 2.The leftmid internal carotid artery demonstrates increased velocities, however, this is just distal to a tortuous segment of the artery. 3.Elevated velocities with colorflow disturbance in the right subclavian artery suggests stenosis. 4.The left vertebral artery is not seen. PHYSICIAN INTERPRETATION Bilateral carotid artery examination demonstrates no evidence of plaque or occlusive disease. Intimal thickening noted in the common carotid artery and bulb bilaterally. Left internal carotid artery with tortuosity and elevated velocity secondary to this anatomy Elevated velocity suggestive of greater than 50 % stenosis of the right subclavian artery Right vertebral artery antegrade, left vertebral artery not visualized on exam. Carotid Findings:RightLeft Verteb.Flw AntegradeNot seen Subclavian Abnormal Biphasic MEASUREMENTS: DOPPLER Left Bulb Bulb PSV73.1 cm/sBulb EDV15.7 cm/s Left CCA Dist CCA Dist PSV86.4 cm/sCCA Dist EDV30.6 cm/s Left CCA Mid CCA Mid PSV 91.1 cm/sCCA Mid EDV 29.9 cm/s Left CCA Prox CCA Prox PSV92.7 cm/sCCA Prox EDV22 cm/s Left ICA Dist ICA Dist PSV93.6 cm/Gerber Dist EDV34 cm/s Left ICA Mid ICA Mid SDF402 cm/Gerber Mid EDV 66.8 cm/s Left ICA Prox ICA Prox PSV96.6 cm/Gerber Prox EDV33 cm/s Left ECA Prox ECA Prox PSV86.2 cm/sECA Prox EDV7.04 cm/s Right Bulb Bulb PSV62.1 cm/sBulb EDV16.5 cm/s Right CCA Dist CCA Dist PSV70.7 cm/sCCA Dist EDV17.3 cm/s Right CCA Mid CCA Mid PSV 83.3 cm/sCCA Mid EDV 14.1 cm/s Right CCA Prox CCA Prox PSV 127 cm/sCCA Prox EDV9.82 cm/s Right ICA Dist ICA Dist PSV97.4 cm/Gerber Dist EDV29.9 cm/s Right ICA Mid ICA Mid PSV 57.5 cm/Gerber Mid EDV 25.5 cm/s Right ICA Prox ICA Prox PSV 105 cm/Gerber Prox EDV35.4 cm/s Right ECA Prox ECA Prox PSV59.2 cm/sECA Prox EDV7.04 cm/s Right Vertebral Vertebral PSV 59.8 cm/sVertebral EDV 22.3 cm/s Left SCA Prox SCA Prox PSV 144 cm/sSCA Prox EDV 0 cm/s Right SCA Prox SCA Prox PSV 277 cm/sSCA Prox EDV 0 cm/s Right ICA/CCA Ratio ICA/CCA PSV 1.26 Left ICA/CCA Ratio ICA/CCA PSV 1.06 Signed 09/08/2017 02:16 PM Jayden Pace MD, RPVI Procedure Note Interface, Radiology Results In - 09/08/2017 2:17 PM CDT [facility] Carotid Duplex Report [id number] [facility], [place] [address] For quality improvement coordinator (rn) purposes, the categorization of the degree of the stenosis of this exam is based on criteria described in the IAC carotid stenosis grading white paper( www.intersocietal.org/Vascular) and in Yael Lakhani., Muna Medina., et al. Carotid artery stenosis: cruz-scale and Doppler US diagnosis--Society of Radiologists in Ultrasound Consensus Conference. Radiology. 2003 Nov; 229(2):340-6. Pat.Name: LEROY BOLAÑOS Pat.ID: [id number] .Date: 09/08/2017 Refer.MD: KAY CARR MD Exam Time: 9:39:00 AM Study Type:Carotid Age: 5 1955,62Y Sex: MALE Sonogrphr: Eun Maldonado RN, RVT CPT - 4: 31524 Echo Event ID:[id number] Order ID: [id number] Reason for Study:Pre op CV exam for aortic stenosis. Race: C SUMMARY: CAROTID ARTERY SCAN RIGHT: There is intimal thickening throughout the common carotid artery and bulb. The internal and external carotid artery are clear. The internal carotid artery is tortuous. Colorflow is normal. There is antegrade flow in the vertebral artery. Elevated velocities with colorflow disturbance in the subclavian artery suggests stenosis. LEFT: There is intimal thickening throughout the common carotid artery and bulb. The internal and external carotid artery are clear. The internal carotid artery is tortuous. Colorflow is normal. The left vertebral artery is not seen, however, the vein is readily identified. PRELIMINARY FINDINGS 1. Intimal thickening in the common carotid artery and bulb, bilaterally. 2. The left mid internal carotid artery demonstrates increased velocities, however, this is just distal to a tortuous segment of the artery. 3. Elevated velocities with colorflow disturbance in the right subclavian artery suggests stenosis. 4. The left vertebral artery is not seen. PHYSICIAN INTERPRETATION Bilateral carotid artery examination demonstrates no evidence of plaque or occlusive disease. Intimal thickening noted in the common carotid artery and bulb bilaterally. Left internal carotid artery with tortuosity and elevated velocity secondary to this anatomy Elevated velocity suggestive of greater than 50 % stenosis of the right subclavian artery Right vertebral artery antegrade, left vertebral artery not visualized on exam. Carotid Findings: Right Left Verteb.Flw Antegrade Not seen Subclavian Abnormal Biphasic MEASUREMENTS: DOPPLER Left Bulb Bulb PSV 73.1 cm/s Bulb EDV 15.7 cm/s Left CCA Dist CCA Dist PSV 86.4 cm/s CCA Dist EDV 30.6 cm/s Left CCA Mid CCA Mid PSV 91.1 cm/s CCA Mid EDV 29.9 cm/s Left CCA Prox CCA Prox PSV 92.7 cm/s CCA Prox EDV 22 cm/s Left ICA Dist ICA Dist PSV 93.6 cm/s ICA Dist EDV 34 cm/s Left ICA Mid ICA Mid PSV 160 cm/s ICA Mid EDV 66.8 cm/s Left ICA Prox ICA Prox PSV 96.6 cm/s ICA Prox EDV 33 cm/s Left ECA Prox ECA Prox PSV 86.2 cm/s ECA Prox EDV 7.04 cm/s Right Bulb Bulb PSV 62.1 cm/s Bulb EDV 16.5 cm/s Right CCA Dist CCA Dist PSV 70.7 cm/s CCA Dist EDV 17.3 cm/s Right CCA Mid CCA Mid PSV 83.3 cm/s CCA Mid EDV 14.1 cm/s Right CCA Prox CCA Prox PSV 127 cm/s CCA Prox EDV 9.82 cm/s Right ICA Dist ICA Dist PSV 97.4 cm/s ICA Dist EDV 29.9 cm/s Right ICA Mid ICA Mid PSV 57.5 cm/s ICA Mid EDV 25.5 cm/s Right ICA Prox ICA Prox PSV 105 cm/s ICA Prox EDV 35.4 cm/s Right ECA Prox ECA Prox PSV 59.2 cm/s ECA Prox EDV 7.04 cm/s Right Vertebral Vertebral PSV 59.8 cm/s Vertebral EDV 22.3 cm/s Left SCA Prox SCA Prox PSV 144 cm/s SCA Prox EDV 0 cm/s Right SCA Prox SCA Prox PSV 277 cm/s SCA Prox EDV 0 cm/s Right ICA/CCA Ratio ICA/CCA PSV 1.26 Left ICA/CCA Ratio ICA/CCA PSV 1.06 Signed 09/08/2017 02:16 PM Jayden Pace MD, RPVI Performing Organization Address City/State/Zipcode Phone Number [facility] [address] [phone] * Cv ct tavr workup (cta coronary,cta thoracic aorta,cta abdominal aorta) w contrast (09/08/2017 9:38 AM CDT) [facility]arrative [facility] [address] [place] [address] CTA TAVR Protocol Pat.Name:LEROY BOLAÑOS Pat.ID:[id number] .Date: 09/08/2017 Refer.MD:KAY CARR MD Exam Time: 8:52:00 AMStudy Type:CTA TAVR Protocol Height:64inWeight:145lb BSA: 1.71 m2 DOBAge:1955,62Y Sex: MALEHR:84 bpm Nuclear Tech:GIA Payne(Shanae)(CT) Pat. Stat.:Outpatient CPT - 4: TAVR w Coronaries [id number] Nuclear Event ID:[id number] Order ID:[id number] Reason for Study:TAVR workup Procedures:CTA TAVR Protocol Race:C SUMMARY: Technique: IV contrast was administered and sequential 0.[address] cuts were obtained through the chest using the Siemens Somatom Force CT scanner. Post-processing and 3D reconstruction were done using the [employer] workstation. Interactive image viewing and volumetric display and analysis were also performed. CTA RESULTS Left Main: A normal sized artery which arises normally from the left sinus of Valsalva and divides into the left anterior descending and circumflex coronary arteries. No significant calcified and non-calcified atherosclerotic plaque is present. Left anterior descending (LAD): A normal sized artery which wraps around the apex and gives off two diagonal branches. Mild calcified and non-calcified atherosclerotic plaque is present in the proximal segment but without significant stenosis. The first diagonal is a normal sized artery which has no significant atherosclerotic plaque present. The second diagonal is a normal sized artery which has no significant atherosclerotic plaque present. Left circumflex: A normal sized dominant artery which arises normally from the left main and gives off three major obtuse marginal arteries before becoming the posterior descending artery. No significant atherosclerotic plaque present. The first obtuse marginal is a normal sized artery which has no significantatherosclerotic plaque present. The second obtuse marginal is a normal sized artery which has no significantatherosclerotic plaque present. The third obtuse marginal is a normal sized artery which has no significantatherosclerotic plaque present. The posterior descending is a normal sized artery which has no significant atherosclerotic plaque present. Right coronary artery: A small nondominant artery which arises normally from the right sinus of Valsalva and gives off several right ventricular branches.. No significantatherosclerotic plaque present. Ramus: None. Stents: None. Bypass Grafts: None. Pulmonary Arteries: Normal pulmonary artery sizes with no proximal thrombus identified. Left Atrial and Pulmonary Vein Dimensions: Left atrial size (A-P diameter) 3.4 cm. Normal PV anatomy There is no evidence of the left atrial appendage clot. Left Ventricular Valve Morphology/Function: LV septal wall thickness 18 mm. Aortic valve is bicuspid with severe calcification. Pericardium: No pericardium effusion or pericardial thickening. Thoracic Aortic Dimensions: No aortic aneurysm or dissection is seen. Aortic root2.9 cm. Mid ascending thoracic aorta 2.9 cm. Descending thoracic aorta 2 cm. Upper abdominal Aorta: 1.9 cm with no significant atherosclerotic plaque. Celiac trunk: normal sized with no significant stenosis. Superior mesenteric artery: normal sized with no significant stenosis. Right renal artery: normal sized with no significant stenosis. Left renal artery: normal sized with no significant stenosis. Inferior mesenteric artery: normal sized with no significant stenosis. Infrarenal aorta: 1.3 cm with no significant atherosclerotic plaque. TAVR Report Calcified Aorta: Mild Characterization of Aortic Root: Major aortic annulus diameter (systole): 23 mm Perpendicular minor aortic annulus diameter (systole): 21 mm Aortic annulus perimeter (systole): 74 mm Sinus of Valsalva height left coronary (diastole): 16 mm Sinus of Valsalva height non-coronary (diastole): 17 mm Sinus of Valsalva height right coronary (diastole): 16 mm Maximum ascending aorta diameter at 40mm above annulus (diastole): 29 mm Aortic Root Angulation (diastole): 47 degrees Abdominal Aortic Aneurysm: No Thoracic Aortic Aneurysm: No Characterization of access vessels: Right Common Iliac: Minimum lumen diameter: 7 mm Percent stenosis: None Tortuosity: No Calcification: No Right External Iliac: Minimum lumen diameter: 7 mm Percent stenosis: None Tortuosity: No Calcification: No Right Femoral: Minimum lumen diameter: 7 mm Percent stenosis: None Tortuosity: No Calcification: No Left Common Iliac:Minimum lumen diameter: 7 mm Percent stenosis: None Tortuosity: No Calcification: No Left External Iliac: Minimum lumen diameter: 7 mm Percent stenosis: None Tortuosity: No Calcification: No Left Femoral: Minimum lumen diameter: 7 mm Percent stenosis: None Tortuosity: No Calcification: No Aortic Bifurcation Left Lower Extremity Left internal iliac is a normal sized artery which has no significant atherosclerotic plaque present. Left superficial femoral is a normal sized artery which has no significantatherosclerotic plaque present. Right Lower Extremity Right internal iliac is a normal sized artery which has no significantatherosclerotic plaque present. Right superficial femoral is a normal sized artery which has no significantatherosclerotic plaque present. Non-Cardiac Findings: Small hiatal hernia. CONCLUSION CT coronary angiography shows mild coronary atherosclerosis but no significant coronary artery stenosis. There is no evidence of left atrial appendage thrombus. Severe LVH. Aortic valve is bicuspid with severe calcification. Vascular measurements as noted above. STUDY QUALITY The study quality is good. COMMENTS None. The above report was based on a dedicated Cardiovascular CTA Protocol and interpreted by a Distribution Lead.Should a more comprehensive assessment of non-cardiovascular findings be desired, please consult a radiologist.These images are available in the [facility] [employer] PACS system. Signed 09/08/2017 11:54:50 AM David Garza MD Revised Procedure Note Interface, Radiology Results In - 09/08/2017 11:55 AM CDT Nuclear Cardiology and Cardiac CT [address] [place] [address] CTA TAVR Protocol Pat.Name: LEROY BOLAÑOS Anali.ID: [id number] .Date: 09/08/2017 Refer.MD: KAY CARR MD Exam Time: 8:52:00 AM Study Type:CTA TAVR Protocol Height: 64in Weight: 145lb BSA: 1.71 m2 Age: 5 1955,62Y Sex: MALE HR: 84 bpm Nuclear Tech:GIA Payne(Shanae)(CT) Pat. Stat.:Outpatient CPT - 4: TAVR w Coronaries [id number] Nuclear Event ID:[id number] Order ID: [id number] Reason for Study:TAVR workup Procedures:CTA TAVR Protocol Race: C SUMMARY: Technique: IV contrast was administered and sequential 0.[address] cuts were obtained through the chest using the Siemens Masabiom Force CT scanner. Post-processing and 3D reconstruction were done using the [employer] workstation. Interactive image viewing and volumetric display and analysis were also performed. CTA RESULTS Left Main: A normal sized artery which arises normally from the left sinus of Valsalva and divides into the left anterior descending and circumflex coronary arteries. No significant calcified and non-calcified atherosclerotic plaque is present. Left anterior descending (LAD): A normal sized artery which wraps around the apex and gives off two diagonal branches. Mild calcified and non-calcified atherosclerotic plaque is present in the proximal segment but without significant stenosis. The first diagonal is a normal sized artery which has no significant atherosclerotic plaque present. The second diagonal is a normal sized artery which has no significant atherosclerotic plaque present. Left circumflex: A normal sized dominant artery which arises normally from the left main and gives off three major obtuse marginal arteries before becoming the posterior descending artery. No significant atherosclerotic plaque present. The first obtuse marginal is a normal sized artery which has no significant atherosclerotic plaque present. The second obtuse marginal is a normal sized artery which has no significant atherosclerotic plaque present. The third obtuse marginal is a normal sized artery which has no significant atherosclerotic plaque present. The posterior descending is a normal sized artery which has no significant atherosclerotic plaque present. Right coronary artery: A small nondominant artery which arises normally from the right sinus of Valsalva and gives off several right ventricular branches.. No significant atherosclerotic plaque present. Ramus: None. Stents: None. Bypass Grafts: None. Pulmonary Arteries: Normal pulmonary artery sizes with no proximal thrombus identified. Left Atrial and Pulmonary Vein Dimensions: Left atrial size (A-P diameter) 3.4 cm. Normal PV anatomy There is no evidence of the left atrial appendage clot. Left Ventricular Valve Morphology/Function: LV septal wall thickness 18 mm. Aortic valve is bicuspid with severe calcification. Pericardium: No pericardium effusion or pericardial thickening. Thoracic Aortic Dimensions: No aortic aneurysm or dissection is seen. Aortic root 2.9 cm. Mid ascending thoracic aorta 2.9 cm. Descending thoracic aorta 2 cm. Upper abdominal Aorta: 1.9 cm with no significant atherosclerotic plaque. Celiac trunk: normal sized with no significant stenosis. Superior mesenteric artery: normal sized with no significant stenosis. Right renal artery: normal sized with no significant stenosis. Left renal artery: normal sized with no significant stenosis. Inferior mesenteric artery: normal sized with no significant stenosis. Infrarenal aorta: 1.3 cm with no significant atherosclerotic plaque. TAVR Report Calcified Aorta: Mild Characterization of Aortic Root: Major aortic annulus diameter (systole): 23 mm Perpendicular minor aortic annulus diameter (systole): 21 mm Aortic annulus perimeter (systole): 74 mm Sinus of Valsalva height left coronary (diastole): 16 mm Sinus of Valsalva height non-coronary (diastole): 17 mm Sinus of Valsalva height right coronary (diastole): 16 mm Maximum ascending aorta diameter at 40mm above annulus (diastole): 29 mm Aortic Root Angulation (diastole): 47 degrees Abdominal Aortic Aneurysm: No Thoracic Aortic Aneurysm: No Characterization of access vessels: Right Common Iliac: Minimum lumen diameter: 7 mm Percent stenosis: None Tortuosity: No Calcification: No Right External Iliac: Minimum lumen diameter: 7 mm Percent stenosis: None Tortuosity: No Calcification: No Right Femoral: Minimum lumen diameter: 7 mm Percent stenosis: None Tortuosity: No Calcification: No Left Common Iliac: Minimum lumen diameter: 7 mm Percent stenosis: None Tortuosity: No Calcification: No Left External Iliac: Minimum lumen diameter: 7 mm Percent stenosis: None Tortuosity: No Calcification: No Left Femoral: Minimum lumen diameter: 7 mm Percent stenosis: None Tortuosity: No Calcification: No Aortic Bifurcation Left Lower Extremity Left internal iliac is a normal sized artery which has no significant atherosclerotic plaque present. Left superficial femoral is a normal sized artery which has no significant atherosclerotic plaque present. Right Lower Extremity Right internal iliac is a normal sized artery which has no significant atherosclerotic plaque present. Right superficial femoral is a normal sized artery which has no significant atherosclerotic plaque present. Non-Cardiac Findings: Small hiatal hernia. CONCLUSION CT coronary angiography shows mild coronary atherosclerosis but no significant coronary artery stenosis. There is no evidence of left atrial appendage thrombus. Severe LVH. Aortic valve is bicuspid with severe calcification. Vascular measurements as noted above. STUDY QUALITY The study quality is good. COMMENTS None. The above report was based on a dedicated Cardiovascular CTA Protocol and interpreted by a Distribution Lead. Should a more comprehensive assessment of non-cardiovascular findings be desired, please consult a radiologist. These images are available in the [facility] [employer] PACS system. Signed 09/08/2017 11:54:50 AM David Garza MD Revised Performing Organization Address [facility] Phone Number [facility] [address] [place] [address] * Estimated GFR (09/08/2017 9:02 AM CDT) GFR Non Af Amer 62 mL/min/1.73 m2 [facility] DEPARTMENT OF PATHOLOGY AND GENOMIC MEDICINE GFR Af Amer 75 mL/min/1.73 m2 [facility] DEPARTMENT OF Comment: PATHOLOGY AND Chronic kidney disease: <60 GENOMIC MEDICINE mL/min/1.73m2 Kidney failure: <15 mL/min/1.73m2 The estimated GFR is calculated from the IDMS-traceable Modification of Diet in Renal Disease Equation. The accuracy of the calculation is poor when the creatinine is normal. Calculated values >90 mL/min/1.73m2 are not reported. This equation has not been validated in children (<18 years), women, the elderly (>70 years), or ethnic groups other than Caucasians and Americans. Specimen Blood Performing Organization Address City/[facility]/Zipcode Phone Number [facility] DEPARTMENT OF [address] [place] [address] PATHOLOGY AND GENOMIC MEDICINE * POC creatinine (09/08/2017 9:02 AM CDT) POC creatinine 1.2 0.7 - 1.2 mg/dl [facility] DEPARTMENT OF Comment: PATHOLOGY AND Meter ID: [id number] GENOMIC MEDICINE Casserole Preparer: Tray Arredondo Specimen Blood Performing Organization Address [facility]/Zipcode Phone Number [facility] DEPARTMENT OF [address] [place] [address] PATHOLOGY AND GENOMIC MEDICINE * Echocardiogram complete w contrast and 3D if needed (07/29/2017 1:50 PM DRY DIP WORKER) Narrative Performed At [facility] Echocardiography Report [address] [facility], [address], [place] [address] Pat.Name:LEROY BOLAÑOS.ID:[id number] .Date: 07/29/2017Refer.MD:NIDIA RAHMAN MD Exam Time: 1:10:00 PMStudy Type:Routine Echo Height:64inWeight:150lb BSA: 1.73 m2 DOBAge:1955,62Y Sex: MALEBP:118/59 HR:65 bpmSonogrphr: LIVAN Joshua Pat. Stat.:OutpatientStudy Status:Final Echo Event ID:[id number] Order ID:[id number] Reason for Study:Aortic Stenosis, Valvular regurg, mild with no status change -routine (<3yr) History / Clinical:Dizziness Procedures:2D Echo, Colorflow Doppler Race:C SUMMARY: LV size is normal. There is mild concentric LV hypertrophy. LV EF is normal. Mild to moderate aortic regurgitation. Moderate to severe aortic valve stenosis. FINDINGS: LV: LV size is normal. There is mild concentric LV hypertrophy. LVEF is normal. Overall wall motion is normal. Estimated EFis 65-69% RV: RV size is normal. RV systolic function is normal. LA: LA volume is mildly enlarged. RA: RA size is normal. AO: Aortic root diameter is normal. JEEVAN: No pericardial effusion. AV: Severe calcification of AV leaflets. Mild to moderate aortic regurgitation.Moderate to severe aortic valve stenosis. Estimatedmean aortic valve gradient 51 mmHg with a valve areaof 1 cm2. Aortic valve high velocity and pressure gradientis secondary to high flow state. MV: No structural MV abnormalities noted. PV: No structural PV abnormalities noted. TV: No structural TV abnormalities noted. Renteria: LV relaxation is impaired. Hepatic vein pressure is normal, RApressure < 5mmHg. Other:Insufficient TR jet to estimate PA systolic pressure. MEASUREMENTS: 2D Parasternal Long Peosta LVOT 2.4 cmLA Ds3.9 cm LVIDd4.5 cmIndex2.6 cm/m Ao An1.8 cm LVIDs1.9 cmAo Rtd 2.5 cm Index1.4 cm/m LV%fs 57 % LV Omgl222 g(122-174) IVSd 1.4 cmLVM Dshrf176 g/m2 LVPWd1.3 cmRWT0.6 LA Sng Plane LA Area 20.6 cm2(8.8-23.4) LA Vol60.8 ml Index35.2 ml/m LA LngAx 5.8 cm RA Sng Plane RA Area 15 cm2(8.3-19.5) RA Vol32.9 ml Index19 ml/m RA LngAx 5.6 cm DOPPLER AV For Flow/CORETTA AV pkVel 455 cm/s (100-170) AV AC/ET 0.4 AV mnVel 328.7 cm/Celeste TVI 115.4 cm AV pkPG 82.8 mmHgAVpkAcRt 16868.6 cm/s2 AV Mean G 51.2 mmHgAV EwZa0191.4 cm/s2 AV AC146 msec (83-118) AV Area1 cm2(3-5) AV ET351 msec LVOT For Flow LVOT Area3.8 cm2 LVOT SV114.7 ml TYJWwlCdu140.1 cm/sHR62.2 bpm LVOTpkPG 4.8 mmHgLVOT CO7.1 l/min LVOTmnPG 2.9 mmHgLVOT CI4.1 l/m/m2 LVOT TVI30.2 cm Signed 07/30/2017 12:21 PM David Garza MD Procedure Note Interface, Radiology Results In - 07/30/2017 12:22 PM [facility] Echocardiography Report [address] [address], [address]Name: LEROY BOLAÑOS Pat.ID: [id number] .Date: 07/29/2017 Refer.MD: NIDIA RAHMAN MD Exam Time: 1:10:00 PM Study Type:Routine Echo Height: 64in Weight: 150lb BSA: 1.73 m2 Age: 3 1955,62Y Sex: MALE BP: 118/59 HR: 65 bpm Sonogrphr: LIVAN Joshua Pat. Stat.:Outpatient Study Status:Final Echo Event ID:[id number] Order ID: [id number] Reason for Study:Aortic Stenosis, Valvular regurg, mild with no status change -routine (<3yr) History / Clinical:Dizziness Procedures:2D Echo, Colorflow Doppler Race: C SUMMARY: LV size is normal. There is mild concentric LV hypertrophy. LV EF is normal. Mild to moderate aortic regurgitation. Moderate to severe aortic valve stenosis. FINDINGS: LV: LV size is normal. There is mild concentric LV hypertrophy. LV EF is normal. Overall wall motion is normal. Estimated EF is 65-69% RV: RV size is normal. RV systolic function is normal. LA: LA volume is mildly enlarged. RA: RA size is normal. AO: Aortic root diameter is normal. JEEVAN: No pericardial effusion. AV: Severe calcification of AV leaflets. Mild to moderate aortic regurgitation. Moderate to severe aortic valve stenosis. Estimated mean aortic valve gradient 51 mmHg with a valve area of 1 cm2. Aortic valve high velocity and pressure gradient is secondary to high flow state. MV: No structural MV abnormalities noted. PV: No structural PV abnormalities noted. TV: No structural TV abnormalities noted. Renteria: LV relaxation is impaired. Hepatic vein pressure is normal, RA pressure < 5mmHg. Other: Insufficient TR jet to estimate PA systolic pressure. MEASUREMENTS: 2D Parasternal Long [place] LVOT 2.4 cm LA Ds 3.9 cm LVIDd 4.5 cm Index 2.6 cm/m Ao An 1.8 cm LVIDs 1.9 cm Ao Rtd 2.5 cm Index 1.4 cm/m LV%fs 57 % LV Mass 237 g (122-174) IVSd 1.4 cm LVM Index 137 g/m2 LVPWd 1.3 cm RWT 0.6 LA Sng Plane LA Area 20.6 cm2 (8.8-23.4) LA Vol 60.8 ml Index 35.2 ml/m LA LngAx 5.8 cm RA Sng Plane RA Area 15 cm2 (8.3-19.5) RA Vol 32.9 ml Index 19 ml/m RA LngAx 5.6 cm DOPPLER AV For Flow/CORETTA AV pkVel 455 cm/s (100-170) AV AC/ET 0.4 AV mnVel 328.7 cm/s AV TVI 115.4 cm AV pkPG 82.8 mmHg AVpkAcRt 95859.6 cm/s2 AV Mean G 51.2 mmHg AV DeRt 1295.4 cm/s2 AV AC 146 msec (83-118) AV Area 1 cm2 (3-5) AV ET 351 msec LVOT For Flow LVOT Area 3.8 cm2 LVOT SV 114.7 ml LVOTpkVel 110.1 cm/s HR 62.2 bpm LVOTpkPG 4.8 mmHg LVOT CO 7.1 l/min LVOTmnPG 2.9 mmHg LVOT CI 4.1 l/m/m2 LVOT TVI 30.2 cm Signed 07/30/2017 12:21 PM David Garza MD Performing Organization Address City/State/Zipcode Phone Number [id number] [place] [address] after 06/21/2017 Insurance Payer Benefit Subscriber ID Type Phone Address Plan / Group [employer] WE[employer] xxxxxxxx O [facility] Advance Directives Patient has advance care planning documents, and code status on file. For more i nformation, please contact: Arthur Landeros [address] [place] [address] Date Inactivated Comments Code Status Date Activated 10/04/2017 11:07 PM Full Code 09/30/2017 11:47 AM Code Status decision reached by: Patient
--- OUTSIDE RECORDS SUMMARY | 2018-06-22 06:37 | XMS REPORT | Summary of Care ---
Author SHAGUFTA Owusu M.D. Organization Unknown Address Unknown Phone Unavailable Care Team Providers Care Sales Estimator Name Role Phone SHAGUFTA SHORT M.D. 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 Medications Name Dates Details Diclofenac Potassium TABS Active Diovan 160 MG Oral Tablet * Refills: 0 Active TraMADol HCl TABS * Refills: 0 Active Oxybutynin Chloride TABS * Refills: 0 Active Allergies and Adverse Reactions Name Dates Details No Known Drug Allergies (Allergy) Status: Active Past Medical History Name Dates Details History of cardiac disorder (V12.50, Z86.79) Status: Resolved History of cataract (V12.49, Z86.69) Status: Resolved Procedures Procedure Dates Details Procedures not documented Immunization Name Dates Details Immunizations not documented Family History Name Dates Details Family history of Cancer Comments: Family History Status: Active Family history of Heart Disease (V17.49) Comments: Family History Status: Active Social History Name Dates Details Unknown if ever smoked Vital Signs Date Test Result Details No Known Vitals to report Results Date Description Value Details Results not documented Plan of Care Name Dates Details Planned Observations Planned Goals not documented Interventions Provided Labs/Procedures/Imaging* [U] XRAY SHOULDER MIN 2 VWS LEFT 09411; Done: 19 Aug 2016 Plan* Completed at Today's Appointment: * Injection * Patient Education/Instructions: * Patient Education Provided * Reassurance * Counseling Provided. * Follow Up: * Return to the clinic in 3 month(s) or as needed. Instructions Name Dates Details Instructions not documented Encounters Appointment; HADNOTT, SHAGUFTA, M.D. Encounter Diagnosis: Problem not documented On: 19-Aug-2016 13:00
--- OUTSIDE RECORDS SUMMARY | 2018-06-22 06:37 | XMS REPORT ---
[facility] Address Unknown Phone Unavailable Care Team Providers Care Digester Operator Helper Name Role Phone Yolanda RICE Unavailable Unavailable Problems This patient has no known problems. Allergies, Adverse Reactions, Alerts This patient has no known allergies or adverse reactions. Medications This patient has no known medications. Encounters Start Date/Time End Date/Time Encounter Type Admission Type Attending [facility] Care Facility Care Department Encounter ID 2018-04-25 00:00:00 2018-04-25 00:00:00 Outpatient [facility] [id number] 2018-03-15 14:39:38 2018-03-15 14:39:38 Emergency [facility] [id number] 2018-03-15 12:22:01 2018-03-15 12:22:01 Emergency [facility] [id number] Results Test Description Test Time Test Comments Text Results Atomic Results Result Comments CHEST 2 VIEWS 2018-06-15 09:44:00 [place] [address] Patient Name: LEROY SCHULTE JR MR #: [id number] : 1955 Age/Sex: 62/M Req #: [id number] Adm Physician: Ordered by: BRAULIO RICE MD Report #: [id number] Location: OR Room/Bed: Procedure: [id number] DX/CHEST 2 VIEWS Exam Date: 06/15/18 Exam Time: 919 REPORT STATUS: Signed EXAMINATION: CHEST 2 VIEWS INDICATION: Prostate surgery. Preop COMPARISON: None FINDINGS: TUBES and LINES: None. LUNGS: Lungs are well inflated. Lungs are clear. There is no evidence of pneumonia or pulmonary edema. PLEURA: No pleural effusion or pneumothorax. HEART AND MEDIASTINUM: Postsurgical changes are seen to the heart with sternal hardware and cardiac metallic mesh/stent. The cardiomedia stinal silhouette is otherwise unremarkable. BONES AND SOFT TISSUES: No acute osseous lesion. Soft tissues are unremarkable. UPPER ABDOMEN: No free air under the diaphragm. IMPRESSION: No acute thoracic abnormality. Signed by: Dr. Hitesh Spears M.D. on 06/15/2018 9:46 AM Dictated By: HITESH SPEARS MD, MD 5 Transcribed By: CAROL ANN on 06/15/18945 COPY TO: BRAULIO RICE MD
[2018-06-22] MEDS ORDERED: CEFTRIAXONE SOD 1 GM/NS 50 ML 50 ML IV ONE (07:03)
--- NOTE | 2018-06-22 07:15 | NUR ---
SPIRITUAL CARE - Pre-Surgery Assessment: Pt in bed. Pt reported supportive attention from family and friends. Intervention: I provided pastoral presence, hospitality, and sympathetic listening. I acquainted pt with availability of rn new graduate while hospitalized. Outcome: Pt expressed appreciation for visit. No need for follow up indicated at this time. [facility] Spiritual Care Department O: [phone] Pager: [phone] ([phone] number calling from)
[2018-06-22] MEDS ORDERED: FINASTERIDE5 MG PO (07:16)
[2018-06-22] MEDS ORDERED: TAMSULOSIN HCL0.4 MG PO (07:16)
[2018-06-22] MEDS ORDERED: BELLADONNA/OPIUM 30 MG SUPP RC ONE (08:45)
--- OUTSIDE RECORDS SUMMARY | 2018-06-22 10:11 | XMS REPORT | Clinical Summary ---
Author Author [facility] Organization [facility] Address Unknown Phone Unavailable Care Team Providers Care Senior Design Engineer Name Role Phone PCP Unavailable Allergies Comments [...] MD, 03/15/2018 3:46 PM Performing Organization Address [facility] Phone Number SMS * BMP POC (03/15/2018 [...] BT MAIN-STATION Afr-Am 1 Performing Organization Address [facility] Phone Number MISYS BT MAIN-STATION 1 * UA CHEMISTRIES (03/15/2018 12:58 PM CDT) Color Yellow BT MAIN-STATION 3 Clarity Clear BT MAIN-STATION 3 Spec [place] 1.020 1.001 - 1.035 BT MAIN-STATION 3 [...] MAIN-STATION 3 Specimen Urine Performing Organization Address City/[facility]/Zipcode Phone Number MISYS BT MAIN-STATION 3 * URINE CULTURE (03/15/2018 12:58 PM CDT) Spec Catheterized urine BT MICROBIOLOGY Description Order Comments None BT MICROBIOLOGY Culture No growth 2 days BT MICROBIOLOGY Report Status Final 03/17/2018 BT MICROBIOLOGY Specimen Urine catheter - CATHETERIZED URINE Performing Organization Address City/[facility] Phone Number MISYS BT MICROBIOLOGY [...] Effective Phone Address Plan / Dates Group [facility] xxxxxxxx 2010-P [phone] [facility] [id number] [address] [place] [address] HC SELF-PAY HC xxxxxxxxx 2012 [facility] [place] [address]
--- OUTSIDE RECORDS SUMMARY | 2018-06-22 10:12 | XMS REPORT | Clinical Summary ---
Author Author Ivel Bahai Organization Ivel Bahai Address Unknown Phone Unavailable Care Team Providers Care Rolloff Driver Name Role Phone Asked, No Pcp PCP [...] Overview: Added automatically from request for surgery [id number] Arthritis 08/22/2017 Resolved Problems Problem Noted Date Resolved Date Severe aortic stenosis by prior echocardiogram 08/22/2017 08/24/2017 Encounters Care Team Description Date Type Specialty Albaro Stone DO Urinary retention due to benign prostatic hyperplasia (Primary Dx) 03/15/2018 Emergency Emergency Medicine - 03/16/2018 Edel Friedman, RN 11/10/2017 Orders Only Cardiovascular Kay Carr MD AVR, MICS APPROACH WITH SIZE MEDIUM FAMILIA PERVEVAL AORTIC VALVE CPT 95026 09/30/2017 Surgery Cardiothoracic Surgery Allyson Tierney, DISCHARGING MACHINE OPERATOR 09/30/2017 Anesthesia Cardiothoracic Surgery Event Kay Carr MD Aortic valve stenosis, etiology of cardiac valve disease unspecified 09/30/2017 Hospital Cardiovascular - Encounter 10/04/2017 Edel Friedman, SALLY 09/19/2017 Telephone Cardiovascular Kay Carr MD Nonrheumatic aortic valve stenosis; Pre-op evaluation; Preoperative respiratory examination 09/08/2017 Hospital Pulmonology Encounter Kay Carr MD Nonrheumatic aortic valve stenosis; Pre-op evaluation; Preoperative respiratory examination 09/08/2017 [facility] Pulmonology Encounter Kay Carr MD Nonrheumatic aortic [...] Tmpry Cardiac N/A: N/A [employer] Streamline - [id number] Pacing [place] - Implanted: Qty: 1 on 09/30/2017 by Leads or CARDIAC Kay Carr MD Electrodes RYHTYM or MGMT Accessorie s 02/12/2020 [id number] / [id number] / [id number] Valve Perceval Medium 23mm - Cardiovasc N/A: N/A FAMILIA [id number] - [id number] ular GROUP Implanted: Qty: 1 on 09/30/2017 by Implants Kay Carr MD [id number] / / Sternal Drill-Free, Maxdrive IPM N/A: N/A MERCEDEZ LYNN Locking Screw 2.3mm X 11mm IMPLANT Ti-6al-4v Titanium Alloy - DEVICES [id number] Implanted: Qty: 8 on 09/30/2017 by Kay Carr MD [id number] / / 2.3 X 7mm Sternal Locking Screw - IPM N/A: N/A KLS SHANE [id number] IMPLANT Implanted: Qty: 1 on 09/30/2017 by DEVICES Kay Carr MD [id number] / / Plate, Lock, Sternal, 14 Holes - IPM N/A: N/A KLS SHANE [id number] IMPLANT Implanted: Qty: 1 on 09/30/2017 by DEVICES Kya Carr MD [id number] / / Clip Ligtng [place] Hemoclip Plus W/ Medical N/A: N/A WECK Tape Ti Med Lg - [id number] Clips for CLOSURE Implanted: 09/30/2017 (Quantity not Internal SYSTEMS on file) Use [id number] / / Clip Ligtng Weck Hemoclip Plus W/ Medical N/A: N/A TELEFLEX Tape Ti Med - [id number] Clips for MEDICAL Implanted: 09/30/2017 (Quantity not Internal on file) Use [id number] / / Clip Ligtng Weck Hemoclip Plus W/ Medical N/A: N/A TELEFLEX Tape Ti Med - [id number] Clips for MEDICAL Implanted: 09/30/2017 (Quantity not Internal on file) Use [id number] / / Clip Ligtng Weck Hemoclip Plus W/ Medical N/A: N/A WECK Tape Ti Sm Strngpnt - [id number] Clips for CLOSURE Implanted: 09/30/2017 (Quantity not Internal SYSTEMS on file) Use [id number] / / Clip Ligtng Weck Hemoclip Plus W/ Medical N/A: N/A WECK Tape Ti Sm Strngpnt - [id number] Clips for CLOSURE Implanted: 09/30/2017 (Quantity not Internal SYSTEMS on file) Use [id number] / / Clip Ligtng Weck Hemoclip Plus W/ Medical N/A: N/A TELEFLEX Tape Ti Lg - [id number] Clips for MEDICAL Implanted: 09/30/2017 (Quantity not Internal on file) Use 05/19/2022 [id number] / / [id number] [place] Perph Vasclr Ptfe 1.2x10cm Vascular N/A: N/A BARD 1.65mm - [id number] Graft PERIPHERAL Implanted: Qty: 1 on 09/30/2017 by Kay Mock MD 07/20/2022 [id number] / / [id number] [place] Perph Vasclr Ptfe 1.2x10cm Vascular N/A: N/A BARD 1.65mm - [id number] Graft PERIPHERAL Implanted: Qty: 1 on 09/30/2017 by Kay Mock MD 07/20/2022 [id number] / / [id number] [place] Perph Vasclr Ptfe 1.2x10cm Vascular N/A: N/A BARD 1.65mm - [id number] Graft PERIPHERAL Implanted: Qty: 1 on 09/30/2017 by Kay Mock MD Procedures Comments Procedure Name Priority Date/Time Associated Diagnosis ECHOCARDIOGRAM 2D Routine 10/03/2017 COMPLETE W MMODE SPECTRAL 5:20 PM CDT COLOR DOPPLER ([id number]) POC GLUCOSE Routine 10/03/2017 12:01 PM CDT [...] 7:40 AM Procedure details: PA Catheter Type: BEATER DUMPER PA Catheter Size: 8.5 PA Catheter Side: [...] Inferior: normal 16- Apical Septal: normal 17- [place]: normal Valves Aortic Valve: Annulus calcified. Stenosis [...] Grade=I E=30.9 ms A=65 ms E/A Ratio=0.5 RK=369 ms S/D= IVRT= Other Findings Pericardiu m: normal Pleural Effusion: none Pulmonary Arteries: normal Pulmonary Venous Flow: normal Anesthesi a Informatio n Performed with residents Anesthesio logist: KANNAN DICKSON V. Resident/ INSIDE SALES ADVERTISING EXECUTIVE/AA: MARTHA HUGGINS Echocardi ogram Comments: LVEF normal. 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 Stat.:[facility] Status:Final Echo Event ID:[id number] Order ID:[id number] Reason for Study:Prosthetic valves/ AV History / [...] PA systolic pressure. MEASUREMENTS: 2D Parasternal [place] LVOT 2 cmLA Ds3.1 cm LVIDd3.4 cmIndex2 cm/m Ao An1.9 cm LVIDs2.2 cmAo Rtd 3.1 cm Index1.8 cm/m LV%fs 34.9 % LV Fsuo736.5 g(122-174) IVSd 1.6 cmLVM Sezyg152.6 g/m2 LVPWd1.8 cmRWT1.1 LA Sng Plane LA [...] 4198.8 cm/s2 AV Mean G 17.1 mmHgAV CdDz7245.5 cm/s2 AV AC 94 msec (83-118) AV Area1.2 cm2(3-5) AV ET205 msec LVOT For Flow LVOT Area3.1 cm2 LVOT SV 44.3 ml LVOTpkVel 94.7 cm/sHR 110.7 bpm LVOTpkPG 3.6 mmHgLVOT CO4.9 l/min LVOTmnPG 2.2 mmHgLVOT CI2.9 l/m/m2 LVOT TVI14.1 cm Signed 10/04/2017 09:53 AM Majo Oquendo MD Procedure Note Interface, Radiology Results In - 10/04/2017 9:53 AM CDT Echocardiography Report [address] [place] [address] Pat.Name: LEROY BOLAÑOS Pat.ID: [id number] .Date: 10/03/2017 Refer.MD: KAY CARR MD Exam Time: 2:10:00 PM Study Type:Routine Echo Height: 64in Weight: 144lb BSA: 1.7 m2 Age: 5 1955,62Y Sex: MALE BP: 113/68 HR: 113 bpm Sonogrphr: LIVAN Blackburn Pat. Stat.:Inpatient Room: [facility] Study Status:Final Echo Event ID:[id number] Order ID: [id number] Reason for Study:Prosthetic valves/ AV History / [...] PA systolic pressure. MEASUREMENTS: 2D Parasternal [place] LVOT 2 cm LA Ds 3.1 cm [...] AM Majo Oquendo MD Performing Organization Address [facility] Cent[facility]ode Phone Number [address] [address] * POC glucose (10/03/2017 12:01 PM CDT) Only the most recent of 16 results within the time period is included. POC glucose 104 (H) 65 - 99 mg/dL [facility] DEPARTMENT OF Comment: PATHOLOGY AND [facility] Notified RN GENOMIC MEDICINE Meter ID: [id number] Sheet Manufacturing Supervisor: Kwadwo Cat Performing Organization Address [facility] Phone Number [facility] [place] [address] PATHOLOGY AND GENOMIC MEDICINE * Estimated GFR (10/03/2017 9:49 AM CDT) Only the most recent of 5 results within the time period is included. GFR Non Af Amer 68 mL/min/1.73 m2 [facility] DEPARTMENT OF PATHOLOGY AND GENOMIC MEDICINE GFR Af Amer 83 mL/min/1.73 m2 [facility] OF Comment: PATHOLOGY AND Chronic kidney [...] Americans. Specimen Plasma specimen Performing Organization Address [facility] Cent[facility]ode Phone Number [facility] [place] [address] PATHOLOGY AND GENOMIC MEDICINE * Phosphorus level (10/03/2017 9:49 AM CDT) Only the most recent of 4 results within the time period is included. Phosphorus 1.4 (L) 2.4 - 4.5 mg/dL [facility] DEPARTMENT OF PATHOLOGY AND GENOMIC MEDICINE Specimen Plasma specimen Narrative Performed At added MG/PHOS per Chente Bowers ENGRAVER PANTOGRAPH 10/03/2017 10:55 by [facility] DEPARTMENT OF PATHOLOGY AND GENOMIC MEDICINE Performing Organization Address City/[facility] [place] [address] PATHOLOGY AND GENOMIC [facility] * Magnesium level (10/03/2017 9:49 AM CDT) Only the most recent of 5 results within the time period is included. Magnesium 1.9 1.6 - 2.4 mg/dL [facility] DEPARTMENT OF PATHOLOGY AND GENOMIC MEDICINE Specimen Plasma specimen Narrative Performed At added MG/PHOS per Chente Bowers ENGRAVER PANTOGRAPH 10/03/2017 10:55 by [facility] DEPARTMENT OF PATHOLOGY AND GENOMIC MEDICINE Performing Organization Address [facility] [place] [address] PATHOLOGY AND [employer] [facility] * Comprehensive metabolic panel (10/03/2017 9:49 AM CDT) Only the most recent of 2 results within the time period is included. Sodium 135 135 - 148 mEq/L [facility] DEPARTMENT OF PATHOLOGY AND GENOMIC MEDICINE Potassium 4.4 3.5 - 5.0 mEq/L [facility] DEPARTMENT OF PATHOLOGY AND GENOMIC MEDICINE Chloride 96 (L) 98 - 112 mEq/L [facility] DEPARTMENT OF PATHOLOGY AND GENOMIC MEDICINE CO2 27 24 - 31 mEq/L [facility] DEPARTMENT OF PATHOLOGY AND GENOMIC MEDICINE Anion gap 12@ANIO 7 - 15 mEq/L [facility] DEPARTMENT OF PATHOLOGY AND GENOMIC MEDICINE BUN 17 8 - 23 mg/dL [facility] DEPARTMENT OF PATHOLOGY AND GENOMIC MEDICINE Creatinine 1.1 0.7 - 1.2 mg/dL [facility] DEPARTMENT OF PATHOLOGY AND GENOMIC MEDICINE Glucose 188 (H) 65 - 99 mg/dL [facility] DEPARTMENT OF PATHOLOGY AND GENOMIC MEDICINE Calcium 9.1 8.8 - 10.2 mg/dL [facility] DEPARTMENT OF PATHOLOGY AND GENOMIC MEDICINE Protein 6.7 6.3 - 8.3 g/dL [facility] DEPARTMENT OF Comment: PATHOLOGY AND GENOMIC MEDICINE 4.6-7.0 g/dL 1 week 4.4-7.6 g/dL 7 months-1year 5.1-7.3 g/dL 1-2 years5.6-7 .5 g/dL >3 years6.0-8 .0 g/dL 18-150 6.3-8.3 g/dL Albumin 2.9 (L) 3.5 - 5.0 g/dL [facility] DEPARTMENT OF PATHOLOGY AND GENOMIC MEDICINE A/G ratio 0.8 0.7 - 3.8 [facility] DEPARTMENT OF PATHOLOGY AND GENOMIC MEDICINE Alkaline phosphatase 38 (L) 40 - 129 U/L [facility] DEPARTMENT OF PATHOLOGY AND GENOMIC MEDICINE AST 36 10 - 50 U/L [facility] DEPARTMENT OF PATHOLOGY AND GENOMIC MEDICINE ALT 19 5 - 50 U/L [facility] DEPARTMENT OF PATHOLOGY AND GENOMIC MEDICINE Total bilirubin 0.9 0.0 - 1.2 mg/dL [facility] DEPARTMENT OF PATHOLOGY AND GENOMIC MEDICINE Specimen Plasma specimen Performing Organization Address City/[facility] [place] [address] PATHOLOGY AND GENOMIC MEDICINE * Smear review (10/03/2017 9:35 AM CDT) Only the most recent of 2 results within the time period is included. Platelet slide review Mkd decreased (A) [facility] DEPARTMENT OF PATHOLOGY AND GENOMIC MEDICINE Anisocytosis Moderate [facility] DEPARTMENT OF PATHOLOGY AND GENOMIC MEDICINE Polychromasia Moderate [facility] DEPARTMENT OF PATHOLOGY AND GENOMIC MEDICINE Ovalocytes Moderate [facility] DEPARTMENT OF PATHOLOGY AND GENOMIC MEDICINE Narrative Performed At added MG/PHOS per Chente Bowers ENGRAVER PANTOGRAPH 10/03/2017 10:55 by [facility] DEPARTMENT OF PATHOLOGY AND GENOMIC MEDICINE Performing Organization Address City/[facility] Cent[facility]ode Phone Number [facility] DEPARTMENT OF [address] [place], [place] [id number] PATHOLOGY AND GENOMIC MEDICINE * CBC with platelet and differential (10/03/2017 9:35 AM CDT) Only the most recent of 4 results within the time period is included. WBC 8.09 4.50 - 11.00 k/uL [facility] DEPARTMENT OF PATHOLOGY AND GENOMIC MEDICINE RBC 3.50 (L) 4.40 - 6.00 m/uL [facility] DEPARTMENT OF PATHOLOGY AND GENOMIC MEDICINE HGB 11.7 (L) 14.0 - 18.0 g/dL [facility] DEPARTMENT OF PATHOLOGY AND GENOMIC MEDICINE HCT 34.0 (L) 41.0 - 51.0 % [facility] DEPARTMENT OF PATHOLOGY AND GENOMIC MEDICINE MCV 97.1 82.0 - 100.0 fL [facility] DEPARTMENT OF PATHOLOGY AND GENOMIC MEDICINE MCH 33.4 27.0 - 34.0 pg [facility] DEPARTMENT OF PATHOLOGY AND GENOMIC MEDICINE MCHC 34.4 31.0 - 37.0 g/dL [facility] DEPARTMENT OF PATHOLOGY AND GENOMIC MEDICINE RDW - SD 40.7 37.0 - 55.0 fL [facility] DEPARTMENT OF PATHOLOGY AND GENOMIC MEDICINE MPV 11.6 8.8 - 13.2 fL [facility] DEPARTMENT OF PATHOLOGY AND GENOMIC MEDICINE Platelet count 29 (L) 150 - 400 k/uL [facility] DEPARTMENT OF PATHOLOGY AND GENOMIC MEDICINE Nucleated RBC 0.00 /100 WBC [facility] DEPARTMENT OF PATHOLOGY AND GENOMIC MEDICINE Neutrophils 79.6 (H) 39.0 - 69.0 % [facility] DEPARTMENT OF PATHOLOGY AND GENOMIC MEDICINE Lymphocytes 12.6 (L) 25.0 - 45.0 % [facility] DEPARTMENT OF PATHOLOGY AND GENOMIC MEDICINE Monocytes 7.0 0.0 - 10.0 % [facility] DEPARTMENT OF PATHOLOGY AND GENOMIC MEDICINE Eosinophils 0.2 0.0 - 5.0 % [facility] DEPARTMENT OF PATHOLOGY AND GENOMIC MEDICINE Basophils 0.2 0.0 - 1.0 % [facility] DEPARTMENT OF PATHOLOGY AND GENOMIC MEDICINE Immature granulocytes 0.4Comment: "Immature 0.0 - 1.0 % [facility] DEPARTMENT OF granulocytes" (promyelocytes, PATHOLOGY AND myelocytes, metamyelocytes) GENOMIC MEDICINE Performing Organization Address City/[facility] Centercode Phone Number [facility] [address] [address] PATHOLOGY AND GENOMIC MEDICINE * XR Chest [...] Appearance of the chest is otherwise unchanged. [facility]-[id number] Procedure Note Interface, Radiology Results Incoming - 10/02/2017 6:45 PM CDT Examination: XR CHEST 1 VW PORTABLE Clinical history: Chest Tube Removal Comparison: 6:40 AM Impression: 1. Right-sided chest tube has been removed. There is no visible pneumothorax. 2. Appearance of the chest is otherwise unchanged. [facility]-[id number] Performing Organization Address City/[facility] Cent[facility]ode Phone Number [facility] [address] [place] [address] * CBC hemogram (10/02/2017 6:49 AM CDT) WBC 15.31 (H) 4.50 - 11.00 k/uL [facility] DEPARTMENT OF PATHOLOGY AND GENOMIC MEDICINE RBC 3.73 (L) 4.40 - 6.00 m/uL [facility] DEPARTMENT OF PATHOLOGY AND GENOMIC MEDICINE HGB 12.9 (L) 14.0 - 18.0 g/dL [facility] DEPARTMENT OF PATHOLOGY AND GENOMIC MEDICINE HCT 37.1 (L) 41.0 - 51.0 % [facility] DEPARTMENT OF PATHOLOGY AND GENOMIC MEDICINE MCV 99.5 82.0 - 100.0 fL [facility] DEPARTMENT OF PATHOLOGY AND GENOMIC MEDICINE MCH 34.6 (H) 27.0 - 34.0 pg [facility] DEPARTMENT OF PATHOLOGY AND GENOMIC MEDICINE MCHC 34.8 31.0 - 37.0 g/dL [facility] DEPARTMENT OF PATHOLOGY AND GENOMIC MEDICINE RDW - SD 42.5 37.0 - 55.0 fL [facility] DEPARTMENT OF PATHOLOGY AND GENOMIC MEDICINE MPV 11.8 8.8 - 13.2 fL [facility] DEPARTMENT OF PATHOLOGY AND GENOMIC MEDICINE Platelet count 32 (L)Comment: Results double 150 - 400 k/uL [facility] DEPARTMENT OF checked. PATHOLOGY AND GENOMIC MEDICINE Nucleated RBC 0.00 /100 WBC [facility] DEPARTMENT OF PATHOLOGY AND GENOMIC MEDICINE Specimen Blood Performing Organization Address City/[facility]/[place] [address] PATHOLOGY AND GENOMIC MEDICINE * Ionized calcium (10/02/2017 6:49 AM CDT) Only the most recent of 2 results within the time period is included. pH 7.45 [facility] DEPARTMENT OF PATHOLOGY AND GENOMIC MEDICINE Ionized calcium 1.12 1.11 - 1.32 mmol/L [facility] DEPARTMENT OF PATHOLOGY AND GENOMIC MEDICINE Specimen Plasma specimen Performing Organization Address City/[facility]/[place] [address] PATHOLOGY AND GENOMIC MEDICINE * Basic metabolic panel (10/02/2017 6:49 AM CDT) Only the most recent of 3 results within the time period is included. Sodium 133 (L) 135 - 148 mEq/L [facility] DEPARTMENT OF PATHOLOGY AND GENOMIC MEDICINE Potassium 5.2 (H) 3.5 - 5.0 mEq/L [facility] DEPARTMENT OF PATHOLOGY AND GENOMIC MEDICINE Chloride 94 (L) 98 - 112 mEq/L [facility] DEPARTMENT OF PATHOLOGY AND GENOMIC MEDICINE CO2 29 24 - 31 mEq/L [facility] DEPARTMENT OF PATHOLOGY AND [employer] MEDICINE Anion gap 10 7 - 15 mEq/L [facility] DEPARTMENT OF Comment: PATHOLOGY AND Starting from August [facility] , anion gap calculation no longer incorporates potassium. Please note the change. BUN 10 8 - 23 mg/dL [facility] DEPARTMENT OF PATHOLOGY AND [employer] MEDICINE Creatinine 0.9 0.7 - 1.2 mg/dL [facility] DEPARTMENT OF PATHOLOGY AND [employer] MEDICINE Glucose 139 (H) 65 - 99 mg/dL [facility] DEPARTMENT OF PATHOLOGY AND [employer] MEDICINE Calcium 9.5 8.8 - 10.2 mg/dL [facility] DEPARTMENT OF PATHOLOGY AND [employer] MEDICINE Specimen Plasma specimen Performing Organization Address City/[facility] Phone Number [place] [phone] [place] [address] PATHOLOGY AND [facility] * ECG 12 lead (10/01/2017 4:51 AM CDT) Only the most recent of 3 results within the time period is included. Ventricular rate 90 [facility] Atrial rate 90 [facility] [place] interval 198 [facility] QRSD interval 124 [facility] QT interval 378 [facility] QTC interval 462 [facility] P axis 1 68 [facility] QRS axis 1 27 [facility] T wave axis 24 [facility] EKG impression Sinus rhythm with occasional [facility] M[facility] premature ventricular complexes-Right bundle branch block-Voltage criteria for left ventricular hypertrophy-ST elevation, consider early repolarization, pericarditis, or injury-Abnormal ECG-In automated comparison with ECG of 30-SEP-2017 14:13,-premature ventricular complexes are now present-ST elevation now present in Anterolateral leads-T wave inversion no longer evident in Anterior leads- Performing Organization Address City/[facility]/Zipcode Phone Number [facility] [address] [place] [address] * Partial thromboplastin time, activated (10/01/2017 2:00 AM CDT) Only the most recent of 3 results within the time period is included. PTT 32.2 23.0 - 36.0 sec [facility] DEPARTMENT OF Comment: PATHOLOGY AND PTT therapeutic range for [facility] unfractionated heparin is 61.0-112.0 seconds which corresponds to Anti-Xa 0.3-0.7 U/ml. Specimen Blood Performing Organization Address City/[facility] [place] [address] PATHOLOGY AND GENOMIC MEDICINE * Prothrombin time with INR (10/01/2017 2:00 AM CDT) Only the most recent of 5 results within the time period is included. Prothrombin time 15.9 (H) 12.0 - 15.0 sec [facility] DEPARTMENT OF PATHOLOGY AND GENOMIC MEDICINE INR 1.2 [facility] DEPARTMENT OF Comment: PATHOLOGY AND The International Normalized GENOMIC MEDICINE Ratio (INR) is a therapeutic monitoring tool for patients who are stable on oral anticoagulant therapy. An INR of 2.0-3.0 is suggested for deep vein thrombosis/pulmonary embolism. Specimen Blood Performing Organization Address [facility] [place] [address] PATHOLOGY AND GENOMIC MEDICINE * Potassium level (09/30/2017 10:11 PM CDT) Potassium 4.9 3.5 - 5.0 mEq/L [facility] DEPARTMENT OF PATHOLOGY AND GENOMIC MEDICINE Specimen Plasma specimen Performing Organization Address [facility] [place] [address] PATHOLOGY AND GENOMIC MEDICINE * Potassium, syringe (09/30/2017 6:38 PM CDT) Only the most recent of 7 results within the time period is included. Potassium, syringe 4.6 3.5 - 5.0 mEq/L [facility] DEPARTMENT OF PATHOLOGY AND GENOMIC MEDICINE Specimen Blood Performing Organization Address City/[facility] [place] [address] PATHOLOGY AND GENOMIC MEDICINE * Surgical pathology request (09/30/2017 12:59 PM CDT) [facility] DEPARTMENT OF PATHOLOGY AND GENOMIC MEDICINE Surgical pathology report See link below for PDF Lab [facility] DEPARTMENT OF Report PATHOLOGY AND GENOMIC MEDICINE Result status This is Final Report to [facility] DEPARTMENT OF [id number] PATHOLOGY AND GENOMIC MEDICINE Performing Organization Address City/[facility] [place] [address] PATHOLOGY AND GENOMIC MEDICINE * Fibrinogen (09/30/2017 12:11 PM CDT) Only the most recent of 3 results within the time period is included. Fibrinogen 190 (L) 200 - 450 mg/dL [facility] DEPARTMENT OF PATHOLOGY AND GENOMIC MEDICINE Specimen Blood Performing Organization Address City/[facility] [place] [address] PATHOLOGY AND [facility] * Ionized calcium, arterial (09/30/2017 12:00 PM CDT) Only the most recent of 6 results within the time period is included. Ionized calcium, arterial 1.03 (L) 1.11 - 1.32 mmol/L [facility] DEPART[facility] PATHOLOGY AND GENOMIC MEDICINE Specimen Blood Performing Organization Address City/[facility] [place] [address] PATHOLOGY AND [facility] * Arterial blood gas (09/30/2017 12:00 PM CDT) pH, arterial 7.39 7.35 - 7.45 [facility] DEPARTMENT OF PATHOLOGY AND GENOMIC MEDICINE pCO2, arterial 36 35 - 45 mmHg [facility] DEPARTMENT OF PATHOLOGY AND GENOMIC MEDICINE pO2, arterial 267 (H) 80 - 90 mmHg [facility] DEPARTMENT OF PATHOLOGY AND GENOMIC MEDICINE Bicarbonate, arterial 21.6 21.0 - 28.0 mmol/L [facility] DEPARTMENT OF PATHOLOGY AND GENOMIC MEDICINE Base excess, arterial -2 -2 - 2 mEq/L [facility] DEPARTMENT OF PATHOLOGY AND GENOMIC MEDICINE O2 saturation, arterial 100 95 - 100 % [facility] DEPARTMENT OF PATHOLOGY AND GENOMIC MEDICINE Specimen Blood Performing Organization Address City/[facility] Phone Number [facility] [place] [address] PATHOLOGY AND [employer] [facility] * Hepatitis B surface Ab, quantitative (09/30/2017 11:55 AM CDT) Hepatitis B surface Ab 17.30 IU/L [facility] Comment: The anti-HBs is greater than [...] Cellular and Tissue-Based Products (HCT/P). Performed by [facility], [address] [place] [phone] [email or web address], Jos Rucker MD - Lab. Director Specimen Serum Performing Organization Address [facility] Phone Number [facility] [address] [place] [phone] * Hepatitis C antibody (09/30/2017 11:55 AM CDT) Hepatitis C Ab Non-reactive Non-reactive [facility] DEPARTMENT OF PATHOLOGY AND GENOMIC MEDICINE Specimen Blood Performing Organization Address [facility] [place] [address] PATHOLOGY AND GENOMIC MEDICINE * Hepatitis Be Ab (09/30/2017 11:55 AM CDT) Hepatitis Be Ab Positive (A) Negative [facility] Comment: The anti-HBe is repeatedly reactive, [...] one month may be useful. Performed by [facility], [address] [place] [address] [phone] [email or web address], Jos Rucker MD - Lab. Director Specimen Serum Performing Organization Address [facility] Centercode Phone Number [facility] [address] [place] [address] * Hepatitis B core antibody IgM (09/30/2017 11:55 AM CDT) Hepatitis B core IgM Reactive (A) Non-reactive [facility] DEPARTMENT OF PATHOLOGY AND GENOMIC MEDICINE Specimen Blood Performing Organization Address [facility]/Zipcode Phone [place] [address] PATHOLOGY AND [facility] * Hepatitis B core antibody total (09/30/2017 11:55 AM CDT) Hepatitis B core total Ab Reactive (A) Non-reactive [facility] DEPARTMENT OF PATHOLOGY AND GENOMIC MEDICINE Specimen Blood Performing Organization Address City/[facility] Phone Number [facility] [place] [address] PATHOLOGY AND [facility] * Hepatitis Be Ag (09/30/2017 11:55 AM CDT) Hepatitis Be Ag Negative Negative [facility] Comment: Performed by [employer], [address] [place] [address] www.[facility], Jos Rucker MD - Lab. Director Specimen Serum Performing Organization Address [facility] Centercode Phone Number [facility] [address] [place] [address] * Hepatitis B surface antigen (09/30/2017 11:55 AM CDT) Hepatitis B surface Ag Non-reactive Non-reactive [facility] DEPARTMENT PATHOLOGY AND GENOMIC MEDICINE Specimen Blood Performing Organization Address City/[facility] Centercode Phone Number [facility] [place] [address] PATHOLOGY [facility] * Sodium level, syringe (09/30/2017 11:10 AM CDT) Only the most recent of 5 results within the time period is included. Sodium, syringe 134 (L) 135 - 148 mEq/L [facility] DEPARTMENT OF PATHOLOGY AND GENOMIC MEDICINE Specimen Blood Performing Organization Address City/[facility] Cent[facility]ode Phone Number [facility] [place] [address] PATHOLOGY AND [facility] * Lactic acid, syringe (09/30/2017 11:10 AM CDT) Lactic acid, syringe 1.4 0.5 - 2.2 mmol/L [facility] DEPARTMENT PATHOLOGY AND GENOMIC MEDICINE Specimen Blood Performing Organization Address City/[facility] Centercode Phone Number [facility] [place] [address] PATHOLOGY [facility] * Hemoglobin, syringe (09/30/2017 11:10 AM CDT) Only the most recent of 5 results within the time period is included. Hemoglobin, syringe 10.5 (L) 14.0 - 18.0 g/dL [facility] DEPARTMENT OF PATHOLOGY AND GENOMIC MEDICINE Specimen Blood Performing Organization Address City/[facility] [place] [address] PATHOLOGY AND GENOMIC MEDICINE * Glucose level, syringe (09/30/2017 11:10 AM CDT) Only the most recent of 5 results within the time period is included. Glucose, syringe 144 (H) 65 - 99 mg/dL [facility] DEPARTMENT OF PATHOLOGY AND GENOMIC MEDICINE Specimen Blood Performing Organization Address [facility] [place] [address] PATHOLOGY AND GENOMIC MEDICINE * Arterial blood gas, corrected (09/30/2017 11:10 AM CDT) Only the most recent of 5 results within the time period is included. pH, arterial 7.39 7.35 - 7.45 [facility] DEPARTMENT OF PATHOLOGY AND GENOMIC MEDICINE pCO2, arterial 36 35 - 45 mmHg [facility] DEPARTMENT OF PATHOLOGY AND GENOMIC MEDICINE pO2, arterial 372 (H) 80 - 90 mmHg [facility] DEPARTMENT OF PATHOLOGY AND GENOMIC MEDICINE Temperature, Celsius 37.0 Degrees C [facility] DEPARTMENT OF PATHOLOGY AND GENOMIC MEDICINE O2 saturation, arterial 99 95 - 100 % [facility] DEPARTMENT OF PATHOLOGY AND GENOMIC MEDICINE pH, arterial corrected 7.39 [facility] DEPARTMENT OF PATHOLOGY AND GENOMIC MEDICINE pCO2, arterial corrected 36 mmHg [facility] DEPARTMENT OF PATHOLOGY AND GENOMIC MEDICINE pO2, arterial corrected 372 mmHg [facility] DEPARTMENT OF PATHOLOGY AND GENOMIC MEDICINE Base excess, arterial -2 -2 - 2 mEq/L [facility] DEPARTMENT OF PATHOLOGY AND GENOMIC MEDICINE Specimen Blood Performing Organization Address [facility] [place] [address] PATHOLOGY AND GENOMIC MEDICINE * Platelet count (09/30/2017 10:09 AM CDT) Platelet count 56 (L) 150 - 400 k/uL [facility] DEPARTMENT OF PATHOLOGY AND GENOMIC MEDICINE Performing Organization Address [facility] [place] [address] PATHOLOGY AND GENOMIC MEDICINE * Hematocrit (09/30/2017 10:09 AM CDT) HCT 25.6 (L) 41.0 - 51.0 % [facility] DEPARTMENT OF PATHOLOGY AND GENOMIC MEDICINE Performing Organization Address City/State/Zipcode Phone Number [facility] DEPARTMENT OF [address] [place] [address] PATHOLOGY AND GENOMIC MEDICINE * Prepare platelet pheresis (09/30/2017 6:32 AM CDT) Product name Apheresis Platelet Leukored #2 [facility] DEPARTMENT OF PATHOLOGY AND GENOMIC MEDICINE Unit number [id number] [facility] DEPARTMENT OF PATHOLOGY AND GENOMIC MEDICINE Product code [id number] [facility] DEPARTMENT OF PATHOLOGY AND GENOMIC MEDICINE Dispense status Transfused [facility] DEPARTMENT OF PATHOLOGY AND GENOMIC MEDICINE Blood expiration date [facility] DE[facility]MENT OF PATHOLOGY AND GENOMIC MEDICINE Blood type code 9500 [facility] DEPARTMENT OF PATHOLOGY AND GENOMIC MEDICINE Blood type O NEGATIVE [facility] DEPARTMENT OF PATHOLOGY AND GENOMIC MEDICINE Product name Apheresis Platelet ACDA LRIRR [facility] DEPARTMENT OF #1 PATHOLOGY AND GENOMIC MEDICINE Unit number [id number] [facility] DEPARTMENT OF PATHOLOGY AND GENOMIC MEDICINE Product code [id number] [facility] DEPARTMENT OF PATHOLOGY AND GENOMIC MEDICINE Dispense status Transfused [facility] DEPARTMENT OF PATHOLOGY AND GENOMIC MEDICINE Blood expiration date [facility] DEPARTMENT OF PATHOLOGY AND GENOMIC MEDICINE Blood type code 6200 [facility] DEPARTMENT OF PATHOLOGY AND GENOMIC MEDICINE Blood type A POSITIVE [facility] DEPARTMENT OF PATHOLOGY AND GENOMIC MEDICINE Performing Organization Address City/State/Zipcode Phone Number [address] [address] PATHOLOGY AND GENOMIC MEDICINE * Prepare RBC (09/30/2017 6:32 AM CDT) Product name Red Blood Cells -1, Leukored [facility] DEPARTMENT OF PATHOLOGY AND GENOMIC MEDICINE Unit number [id number] [facility] DEPARTMENT OF PATHOLOGY AND GENOMIC MEDICINE Product code [id number] [facility] DEPARTMENT OF PATHOLOGY AND GENOMIC MEDICINE Dispense status Returned to BB not transfused [facility] DEPARTMENT OF PATHOLOGY AND GENOMIC MEDICINE Blood expiration date [facility] DEPARTMENT OF PATHOLOGY AND GENOMIC MEDICINE Blood type code 5100 [facility] DEPARTMENT OF PATHOLOGY AND GENOMIC MEDICINE Blood type O POSITIVE [facility] DEPARTMENT OF PATHOLOGY AND GENOMIC MEDICINE Product name Red Blood Cells -1, Leukored [facility] DEPARTMENT OF PATHOLOGY AND GENOMIC MEDICINE Unit number [id number] [facility] DEPARTMENT OF PATHOLOGY AND GENOMIC MEDICINE Product code [id number] [facility] DEPARTMENT OF PATHOLOGY AND GENOMIC MEDICINE Dispense status Returned to BB not transfused [facility] DEPARTMENT OF PATHOLOGY AND GENOMIC MEDICINE Blood expiration date [facility] DEPARTMENT OF PATHOLOGY AND GENOMIC MEDICINE Blood type code 5100 [facility] DEPARTMENT OF PATHOLOGY AND GENOMIC MEDICINE Blood type O POSITIVE [facility] DEPARTMENT OF PATHOLOGY AND GENOMIC MEDICINE Performing Organization Address City/[facility] Centercode Phone Number [facility] DEPARTMENT OF [address] [place] [address] PATHOLOGY AND GENOMIC MEDICINE * Type and screen (09/30/2017 6:32 AM CDT) Only the most recent of 2 results within the time period is included. ABO grouping O [facility] DEPARTMENT OF PATHOLOGY AND GENOMIC MEDICINE Rh type POS [facility] DEPARTMENT OF PATHOLOGY AND GENOMIC MEDICINE Antibody screen (gel) NEG [facility] DEPARTMENT OF PATHOLOGY AND GENOMIC MEDICINE Specimen Blood Performing Organization Address [facility] Centercode Phone Number [facility] DEPARTMENT OF [address] [place] [address] PATHOLOGY AND GENOMIC MEDICINE * XR Chest 2 Vw (09/08/2017 12:57 PM CDT) Narrative Performed At EXAMINATION:XR CHEST 2 VW RADIANT CLINICAL HISTORY:62 years Male I35.0 Nonrheumatic aortic (valve) stenosis, Z01.818 Encounter for other preprocedural examination, aortic stenosispreop evaluation [facility] COMPARISON:None IMPRESSION: 1.Heart size and central vasculature are normal. 2.The lungs are clear. 3.Mild degenerative change in the spine. [facility]-[id number] Procedure Note Hm Interface, Radiology Results Incoming - 09/08/2017 1:05 PM CDT EXAMINATION: XR CHEST 2 VW CLINICAL HISTORY:62 years Male I35.0 Nonrheumatic aortic (valve) stenosis, Z01.818 Encounter for other preprocedural examination, aortic stenosis preop evaluation [facility] COMPARISON: None IMPRESSION: 1. Heart size and central vasculature are normal. 2. The lungs are clear. 3. Mild degenerative change in the spine. [facility]-[id number] Performing Organization Address City/[facility] Centercode Phone Number [facility] [address] [place] [address] * Reticulocyte count (09/08/2017 12:10 PM CDT) Retic %, auto 2.2 (H) 0.5 - 2.1 % [facility] DEPARTMENT OF PATHOLOGY AND GENOMIC MEDICINE Retic absolute, auto 0.1001 0.0220 - 0.1260 m/uL [facility] DEPARTMENT OF PATHOLOGY AND GENOMIC MEDICINE Specimen Blood Performing Organization Address City/[facility]/Zipcode Phone Number [address] [address] PATHOLOGY AND GENOMIC MEDICINE * B natriuretic peptide (09/08/2017 12:10 PM CDT) BNP 231 (H) 0 - 100 pg/mL [facility] DEPARTMENT OF PATHOLOGY AND GENOMIC MEDICINE Specimen Blood Performing Organization Address City/[facility]/Zipcode Phone Number [address] [address] PATHOLOGY AND GENOMIC MEDICINE * Hemoglobin, plasma (09/08/2017 12:10 PM CDT) Hemoglobin, plasma 8.5 0.0 - 9.7 mg/dL [facility] Comment: Performed by [employer], [address], [place] [id number] www.[facility], Jos Rucker MD - Lab. Director Specimen Plasma specimen Performing Organization Address City/[facility]/Zipcode Phone Number [facility] [address] [place] [address] * Urinalysis screen and microscopy, with reflex to culture (09/08/2017 12:00 PM CDT) Specimen site Clean catch [facility] DEPARTMENT OF PATHOLOGY AND GENOMIC MEDICINE Color, UA Straw [facility] DEPARTMENT OF PATHOLOGY AND GENOMIC MEDICINE Appearance, UA Clear [facility] DEPARTMENT OF PATHOLOGY AND GENOMIC MEDICINE Specific gravity, UA 1.048 (H) 1.001 - 1.035 [facility] DEPARTMENT OF PATHOLOGY AND GENOMIC MEDICINE pH, UA 6.0 5.0 - 8.5 [facility] DEPARTMENT OF PATHOLOGY AND GENOMIC MEDICINE Protein, UA Negative Negative [facility] DEPARTMENT OF PATHOLOGY AND GENOMIC MEDICINE Glucose, UA Negative Negative [facility] DEPARTMENT OF PATHOLOGY AND GENOMIC MEDICINE Ketones, UA Negative Negative [facility] DEPARTMENT OF PATHOLOGY AND GENOMIC MEDICINE Bilirubin, UA Negative Negative [facility] DEPARTMENT OF PATHOLOGY AND GENOMIC MEDICINE Blood, UA Negative Negative [facility] DEPARTMENT OF PATHOLOGY AND GENOMIC MEDICINE Nitrite, UA Negative Negative [facility] DEPARTMENT OF PATHOLOGY AND GENOMIC MEDICINE Urobilinogen, UA <2.0 <2.0 [facility] DEPARTMENT OF PATHOLOGY AND GENOMIC MEDICINE Leukocyte esterase, UA Negative Negative [facility] DEPARTMENT OF PATHOLOGY AND GENOMIC MEDICINE Epithelial cells, UA <1 /HPF [facility] DEPARTMENT OF PATHOLOGY AND GENOMIC MEDICINE WBC, UA <1 0 - 1 /HPF [facility] DEPARTMENT OF PATHOLOGY AND GENOMIC MEDICINE RBC, UA 1 0 - 5 /HPF [facility] DEPARTMENT OF PATHOLOGY AND GENOMIC MEDICINE Bacteria, UA None seen None seen [facility] DEPARTMENT OF PATHOLOGY AND GENOMIC MEDICINE Yeast, UA None seen [facility] DEPARTMENT OF PATHOLOGY AND GENOMIC MEDICINE Yeast with pseudohyphae, None seen [facility] DEPARTMENT OF UA PATHOLOGY AND GENOMIC MEDICINE Specimen Urine Performing Organization Address City/[facility]ercode Phone Number [facility] [place] [address] PATHOLOGY AND GENOMIC MEDICINE * Urine culture (09/08/2017 12:00 PM CDT) Urine culture SEE COMMENTComment: [facility] DEPARTMENT OF Bacteriuria screen negative. PATHOLOGY AND GENOMIC MEDICINE Performing Organization Address City/[facility]/Zipcode Phone Number [facility] [place] [address] PATHOLOGY AND GENOMIC MEDICINE * Hemoglobin A1c (09/08/2017 11:26 AM CDT) Hemoglobin A1C 4.4 4.0 - 5.6 % [facility] DEPARTMENT OF Comment: PATHOLOGY AND HbA1c cutoffs for diagnosing GENOMIC MEDICINE diabetes: 4.0% - 5.6%=normal 5.7% - 6.4%=increased risk for diabetes (prediabetes) >=6.5%=diabetes Goals for glycemic control (ADA 2016) < 7.0%Target for non adults with diabetes. More or less stringent targets may be appropriate for individual patients. <7.5% Target for Children and adolescents with type 1 diabetes. Specimen Blood Performing Organization Address [facility] [place] [address] PATHOLOGY AND GENOMIC MEDICINE * Total iron binding capacity (09/08/2017 11:20 AM CDT) Iron level 75 59 - 158 ug/dL [facility] DEPARTMENT OF PATHOLOGY AND GENOMIC MEDICINE Iron binding capacity 256 200 - 400 ug/dL [facility] DEPARTMENT OF PATHOLOGY AND GENOMIC MEDICINE % Saturation 29.3 20.0 - 40.0 % [facility] DEPARTMENT OF PATHOLOGY AND GENOMIC MEDICINE Specimen Plasma specimen Performing Organization Address City/[facility]/[place] [address] PATHOLOGY AND GENOMIC MEDICINE * LDH (09/08/2017 11:20 AM CDT) LDH 235 (H) 87 - 225 U/L [facility] DEPARTMENT OF PATHOLOGY AND GENOMIC MEDICINE Specimen Plasma specimen Performing Organization Address City/[facility]/Zipcode Phone Number [facility] [place] [address] PATHOLOGY AND GENOMIC MEDICINE * Haptoglobin (09/08/2017 11:20 AM CDT) Haptoglobin <10 (L) 30 - 200 mg/dL [facility] DEPARTMENT OF PATHOLOGY AND GENOMIC MEDICINE Specimen Plasma specimen Performing Organization Address City/[facility]ode Phone Number [facility] [place] [address] PATHOLOGY AND GENOMIC MEDICINE * Folate level (09/08/2017 11:20 AM CDT) Folate 6.6 4.8 - 24.2 ng/mL [facility] DEPARTMENT OF PATHOLOGY AND GENOMIC MEDICINE Specimen Serum Performing Organization Address City/[facility] [place] [address] PATHOLOGY AND GENOMIC MEDICINE * Ferritin level (09/08/2017 11:20 AM CDT) Ferritin level 150 30 - 400 ng/mL [facility] DEPARTMENT OF PATHOLOGY AND GENOMIC MEDICINE Specimen Plasma specimen Performing Organization Address City/[facility]ercode Phone Number [facility] [place] [address] PATHOLOGY AND GENOMIC MEDICINE * Vitamin B12 level (09/08/2017 11:20 AM CDT) Vitamin B12 575 211 - 946 pg/mL [facility] DEPARTMENT OF Comment: PATHOLOGY AND Significant overlap exists GENOMIC MEDICINE between normal and deficiency states. However, most patients with deficiencies will have Serum B12 <200 pg/mL. Specimen Serum Performing Organization Address [facility] [place] [address] PATHOLOGY AND GENOMIC MEDICINE * Lipid panel (09/08/2017 11:20 AM CDT) Cholesterol 177 <200 mg/dL [facility] DEPARTMENT OF PATHOLOGY AND GENOMIC MEDICINE Triglycerides 75 <150 mg/dL [facility] DEPARTMENT OF PATHOLOGY AND GENOMIC MEDICINE HDL cholesterol 82 >40 mg/dL [facility] DEPARTMENT OF PATHOLOGY AND GENOMIC MEDICINE LDL cholesterol 106 (H)Comment: Result <100 mg/dL [facility] DEPARTMENT OF obtained by direct LDL PATHOLOGY AND measurement GENOMIC MEDICINE Lipid panel SeeBelow [facility] DEPARTMENT OF interpretation Comment: PATHOLOGY AND Total [...] specimen Performing Organization Address City/State/Zipcode Phone Number [facility] DEPARTMENT OF [address] [place] [address] PATHOLOGY AND GENOMIC MEDICINE * Us carotid duplex (09/08/2017 10:24 AM CDT) Narrative Performed At [facility] Carotid Duplex Report [address] [place], [place] For director quality assurance purposes, the categorization of the degree of the stenosis of this exam is based on criteria described in the IAC carotid stenosis grading white paper( www.intersocietal.org/Vascular) and in Yael Lakhani., Muna Medina., et al. Carotid artery stenosis: cruz-scale and Doppler US diagnosis--Society of Radiologists in Ultrasound Consensus Conference. Radiology. 2003 Nov; 229(2):340-6. Pat.Name:LEROY BOLAÑOS Pat.ID:[id number] .Date: 09/08/2017 Refer.MD:KAY CARR MD Exam Time: 9:39:00 AMStudy Type:Carotid DOBAge:1955,62YSex: MALE Sonogrphr: Eun Maldonado RN, RVT CPT - 4: [id number] Echo Event ID:[id number] Order ID:[id number] Reason for Study:Pre op CV exam for [...] EDV34 cm/s Left ICA Mid ICA Mid BRU219 cm/Gerber Mid EDV 66.8 cm/s Left ICA [...] [facility] Carotid Duplex Report [address] [facility], [place] [address] For director quality assurance purposes, the categorization of the degree of the stenosis of this exam is based on criteria described in the IAC carotid stenosis grading white paper( www.intersocietal.org/Vascular) and in Yael Lakhani., Muna Medina., et al. Carotid artery stenosis: cruz-scale and Doppler US diagnosis--Society of Radiologists in Ultrasound Consensus Conference. Radiology. 2003 Nov; 229(2):340-6. Pat.Name: LEROY BOLAÑOS Pat.ID: [id number] .Date: 09/08/2017 Refer.MD: KAY CARR MD Exam Time: 9:39:00 AM Study Type:Carotid Age: 5 1955,62Y Sex: MALE Sonogrphr: Eun Maldonado RN, RVT CPT - 4: [id number] Echo Event ID:[id number] Order ID: [id number] Reason for Study:Pre op CV exam for [...] RPVI Performing Organization Address City/State/Zipcode Phone Number [facility] [address] [id number] * Cv ct tavr workup (cta coronary,cta thoracic aorta,cta abdominal aorta) w contrast (09/08/2017 9:38 AM CDT) Narrative [facility]formed At [facility] Nuclear Cardiology and Cardiac CT [address] [place] [address] CTA TAVR Protocol Pat.Name:LEROY BOLAÑOS Pat.ID:[id number] .Date: 09/08/2017 Refer.MD:KAY CARR MD Exam Time: 8:52:00 AMStudy Type:CTA TAVR Protocol Height:64inWeight:145lb BSA: 1.71 m2 DOBAge:1955,62Y Sex: MALEHR:84 bpm Nuclear Tech:GIA Payne(Shanae)(CT) Pat. Stat.:Outpatient CPT - 4: TAVR w Coronaries [id number] Nuclear Event ID:[id number] Order ID:[id number] Reason for Study:TAVR workup Procedures:CTA TAVR Protocol Race:C SUMMARY: Technique: IV contrast was administered and sequential 0.[address] cuts were obtained through the chest using the Siemens Somatom Force CT scanner. Post-processing and 3D reconstruction were done using the [employer] workstation. Interactive image viewing and volumetric display [...] Cardiovascular CTA Protocol and interpreted by a Can Pusher.Should a more comprehensive assessment of non-cardiovascular findings be desired, please consult a radiologist.These images are available in the [facility] [employer] PACS system. Signed 09/08/2017 11:54:50 AM David Garza MD Revised Procedure Note Interface, Radiology Results In - 09/08/2017 11:55 AM CDT Nuclear Cardiology and Cardiac CT [address] [place] [address] CTA TAVR Protocol Pat.Name: LEROY BOLAÑOS Anali.ID: [id number] .Date: 09/08/2017 Refer.MD: KAY CARR MD Exam Time: 8:52:00 AM Study Type:CTA TAVR Protocol Height: 64in Weight: 145lb BSA: 1.71 m2 Age: 3 1955,62Y Sex: MALE HR: 84 bpm Nuclear Tech:GIA Payne(Shanae)(CT) Pat. Stat.:Outpatient CPT - 4: TAVR w Coronaries [id number] Nuclear Event ID:[id number] Order ID: [id number] Reason for Study:TAVR workup Procedures:CTA TAVR Protocol Race: C SUMMARY: Technique: IV contrast was administered and sequential 0.[address] cuts were obtained through the chest using the Siemens Lyxiaom Force CT scanner. Post-processing and 3D reconstruction were done using the [employer] workstation. Interactive image viewing and volumetric display [...] Cardiovascular CTA Protocol and interpreted by a Can Pusher. Should a more comprehensive assessment of non-cardiovascular findings be desired, please consult a radiologist. These images are available in the [facility] [employer] PACS system. Signed 09/08/2017 11:54:50 AM David Garza MD Revised Performing Organization Address [facility] Centercode Phone Number [facility] [address] [place] [address] * Estimated GFR (09/08/2017 9:02 AM CDT) GFR Non Af Amer 62 mL/min/1.73 m2 [facility] DEPARTMENT OF PATHOLOGY AND GENOMIC MEDICINE GFR Af Amer 75 mL/min/1.73 m2 [facility] DEPARTMENT OF Comment: PATHOLOGY AND Chronic kidney [...] and Americans. Specimen Blood Performing Organization Address City/[facility]/Zipcode Phone Number [facility] DEPARTMENT OF [address] [place] [address] PATHOLOGY AND GENOMIC MEDICINE * POC creatinine (09/08/2017 9:02 AM CDT) POC creatinine 1.2 0.7 - 1.2 mg/dl [facility] DEPARTMENT OF Comment: PATHOLOGY AND Meter ID: [id number] GENOMIC MEDICINE Sheet Manufacturing Supervisor: Tray Arredondo Specimen Blood Performing Organization Address [facility]/Zipcode Phone Number [facility] DEPARTMENT OF [address] [place] [address] PATHOLOGY AND GENOMIC MEDICINE * Echocardiogram complete w contrast and 3D if needed (07/29/2017 1:50 PM 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 Stat.:OutpatientStudy Status:Final Echo Event ID:[id number] Order ID:[id number] Reason for Study:Aortic Stenosis, Valvular regurg, mild [...] PA systolic pressure. MEASUREMENTS: 2D Parasternal [place] LVOT 2.4 cmLA Ds3.9 cm LVIDd4.5 cmIndex2.6 cm/m Ao An1.8 cm LVIDs1.9 cmAo Rtd 2.5 cm Index1.4 cm/m LV%fs 57 % LV Gwev740 g(122-174) IVSd 1.4 cmLVM Hvvgq467 g/m2 LVPWd1.3 cmRWT0.6 LA Sng Plane LA Area 20.6 cm2(8.8-23.4) LA Vol60.8 ml Index35.2 ml/m LA LngAx 5.8 cm RA Sng Plane RA Area 15 cm2(8.3-19.5) RA Vol32.9 ml Index19 ml/m RA LngAx 5.6 cm DOPPLER AV For Flow/CORETTA AV pkVel 455 cm/s (100-170) AV AC/ET 0.4 AV mnVel 328.7 cm/[place] TVI 115.4 cm AV pkPG 82.8 mmHgAVpkAcRt 98185.6 cm/s2 AV Mean G 51.2 mmHgAV VrGj6447.4 cm/s2 AV AC146 msec (83-118) AV Area1 cm2(3-5) AV ET351 msec LVOT For Flow LVOT Area3.8 cm2 LVOT SV114.7 ml ELKVcbHlq473.1 cm/sHR62.2 bpm LVOTpkPG 4.8 mmHgLVOT CO7.1 l/min LVOTmnPG 2.9 mmHgLVOT CI4.1 l/m/m2 LVOT TVI30.2 cm Signed 07/30/2017 12:21 PM David Garza MD Procedure Note Interface, Radiology Results In - 07/30/2017 12:22 PM [facility] Echocardiography Report [address] [address], [address]Name: LEROY BOLAÑOS Pat.ID: [id number] .Date: 07/29/2017 Refer.MD: NIDIA RAHMAN MD Exam Time: 1:10:00 PM Study Type:Routine Echo Height: 64in Weight: 150lb BSA: 1.73 m2 Age: 3 1955,62Y Sex: MALE BP: 118/59 HR: 65 bpm Sonogrphr: LIVAN Joshua Pat. Stat.:Outpatient Study Status:Final Echo Event ID:[id number] Order ID: [id number] Reason for Study:Aortic Stenosis, Valvular regurg, mild [...] PA systolic pressure. MEASUREMENTS: 2D Parasternal [place] LVOT 2.4 cm LA Ds 3.9 cm [...] 115.4 cm AV pkPG 82.8 mmHg AVpkAcRt 32786.6 cm/s2 AV Mean G 51.2 mmHg AV [...] Organization Address City/State/Zipcode Phone Number [address] [address] [place] [address] after 06/21/2017 Insurance Payer Benefit Subscriber ID Type Phone Address Plan / Group [employer] WELL[employer] xxxxxxxx [facility] Advance Directives Patient has advance care planning documents, and code status on file. For more i nformation, please contact: Arthur Landeros [address] [place] [address] Date Inactivated Comments Code Status Date Activated 10/04/2017 11:07 PM Full Code 09/30/2017 11:47 AM Code Status decision reached by: Patient
--- NOTE | 2018-06-22 10:35 | NUR ---
RECEIVED REPORT FROM [facility] IN PACU, AWAITING FOR PT TO ARRIVE TO FLOOR
[2018-06-22 10:40] VITALS: BP 144/88
--- NOTE | 2018-06-22 10:40 | NUR ---
RECEIVED PT TO FLOOR [id number]. PT IS IN NO S.S OF DISTRESS, DENIES PAIN . PT IS ON CBI , URINE IS LOOKING BENNETT CLEAR. NO CLOTS NOTED . WILL CONTINUE TO MONITOR PT AT THIS TIME. SIDE RAILSX2, BED WHEELS LOCKED, CALL LIGHT IS WITHIN EASY REACH, INSTRUCTED TO CALL FOR ASSISTANCE IF NEEDED
[2018-06-22 10:55] VITALS: BP 144/88
[2018-06-22 11:05] VITALS: BP 144/88
[2018-06-22] MEDS ORDERED: MIDAZOLAM HCL 2 MG/2 ML VIAL ONE (11:22)
[2018-06-22] MEDS ORDERED: FENTANYL CITRATE/PF 100MCG/2 ML INJ ONE (11:22)
[2018-06-22] MEDS ORDERED: HYDROCODONE/APAP 5MG-325MG TAB PO PRN (11:30)
[2018-06-22] MEDS: DEXTROSE 5%/0.45% SOD CHL 1,000 ML IV SCH ×2 (12:13→21:30)
[2018-06-22] MEDS ORDERED: PHENYLEPHRINE HCL 1% 10 MG/ML VIAL ONE (15:01)
[2018-06-22] MEDS ORDERED: PROPOFOL IV EMULSION 10 MG/ML 20 ML VIAL ONE (15:01)
[2018-06-22] MEDS ORDERED: SEVOFLURANE INHAL SOLN 250 ML PEN BTL ONE (15:01)
[2018-06-22] MEDS ORDERED: LIDOCAINE HCL 2% LOCAL INJ 5 ML SDV VIAL INJ ONE (15:01)
[2018-06-22] MEDS ORDERED: DEXAMETHASONE SOD PHOS INJ 4 MG/ML VIAL ONE (15:01)
[2018-06-22] MEDS ORDERED: ONDANSETRON HCL INJ 2MG/ML 2ML 2 MG/ML VIAL ONE (15:01)
[2018-06-22 16:21] VITALS: BP 121/63
[2018-06-22 20:00] VITALS: BP 117/63
[2018-06-22 20:31] VITALS: BP 117/63
[2018-06-22] MEDS: TRIMETHOPRIM/SULFAMETHOXAZOLE 160-800 MG TAB PO SCH (21:24)
[2018-06-23] VITALS: BP 114/60
--- NOTE | 2018-06-23 00:53 | NUR ---
patient sleeping, no s/s of pain observed. will continue to monitor the patient closely.
[2018-06-23 04:00] VITALS: BP 118/58
--- NOTE | 2018-06-23 05:15 | NUR ---
patient refused morning lab work. states "i've already lost enough blood. I gave blood last week" attempted to educate patient on purpose of need for lab work post surgery, patient stated "no, i dont want it".
--- NOTE | 2018-06-23 07:21 | NUR ---
DR. RICE ROUNDED. AWARE OF PT REFUSAL FOR AM LABS. NEW WRITTEN ORDERS IN CHART. DR. RICE REMOVED ELLISON CATH.
[2018-06-23 07:55] VITALS: BP 112/66
[2018-06-23] MEDS ORDERED: TAMSULOSIN HCL 0.4 MG CAP PO SCH (09:00)
[2018-06-23] MEDS ORDERED: FINASTERIDE 5 MG TAB PO SCH (09:00)
[2018-06-23 09:47] VITALS: BP 112/66
[2018-06-23] MEDS: TRIMETHOPRIM/SULFAMETHOXAZOLE 160-800 MG TAB PO SCH (09:47)
--- NOTE | 2018-06-23 09:47 | NUR ---
assessment complete, pt voided 100cc of sauceda red urine, pt co burning and pain upon urination, denies pain after urination, abdomen soft, pt co frequent urination, post void residual of 86cc noted, no other co voiced call light in reach will continue to monitor
--- NOTE | 2018-06-23 11:38 | NUR ---
spoke with dr dunn re: pt co of pain upon urination, output since am and post voids residual, informed nurse pt will have some pain, output is good, and patient may dc home
[2018-06-23] MEDS ORDERED: BACTRIM DS TAB1 EACH PO (11:48)
[2018-06-23] MEDS ORDERED: TYLENOL WITH C1 EACH PO (11:48)
[2018-06-23 12:49] VITALS: BP 120/65
--- NOTE | 2018-06-23 14:11 | NUR ---
CM SPOKE TO PATIENT AT BEDSIDE REGARDING JARAMILLO LETTER. JARAMILLO LETTER GIVEN WITH EXPLANATION. ORIGINAL SIGNED AND PLACED IN CHART; COPY OF ORIGINAL DOCUMENT GIVEN TO PATIENT AT BEDSIDE AND PLACED IN CARE TRANSITION FOLDER. CM CONTACT INFORMATION GIVEN TO PATIENT FOR ANY NEEDS OR CONCERNS. PATIENT WITH NO FURTHER QUESTIONS.
--- NOTE | 2018-08-24 16:30 | Operative Report ---
DATE OF PROCEDURE: 06/22/2018 SURGEON: Adrián Tellez MD PREOPERATIVE DIAGNOSIS: Urinary retention. POSTOPERATIVE DIAGNOSIS: Urinary retention. OPERATIVE PROCEDURES PERFORMED: 1. Cystoscopy. 2. Transurethral resection of the prostate. ANESTHESIA: General anesthesia. ESTIMATED BLOOD LOSS: Minimal. INDICATIONS: Mr. Dallin Bolaños is a 62-year-old gentleman, who recently had an episode of urinary retention for which medical management was successful in having his catheter removed. He now presents for definitive surgical management of this problem. PROCEDURE IN DETAIL: The patient was brought into the operating room, placed in supine position. After administration of general anesthesia, he was placed in dorsal lithotomy position and prepped and draped in usual sterile fashion. Cystourethroscopy was performed using 21-Mongolian cystoscope. The anterior and posterior urethra were noted to be normal. 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 The bladder was entered without difficulty. Upon entering into the bladder, the ureteral orifices were in normal anatomic position and produced a clear efflux. There were grade 2 trabeculations noted throughout the bladder with early cellule formation. There were no other mucosal lesions identified. The bladder was left full and the cystoscope and the sheath were removed. A 26-Mongolian resectoscope sheath was then placed in a retrograde fashion and the [employer] resectoscope was used to perform the procedure. Beginning at the 1 o'clock position and proceeding in a clockwise fashion down to the 6 o'clock position, all the adenomatous tissue between the bladder neck and the veru was resected down to the level of the surgical capsule. Hemostasis was obtained using electrocautery device. A similar procedure was performed on the contralateral side in a counterclockwise fashion, again beginning at the 11 o'clock position and ending at the 6 o'clock. The residual tissue seen at the roof and floor of the gland were then resected as above. The [employer] evacuator was used to remove all chips and these were sent to Pathology for microscopic analysis. Once adequate hemostasis was secured the bladder drained in its entirety and the cystoscope and sheath were removed. The patient was noted to have brisk urinary flow with Crede. A 24-Mongolian 3-way Coude catheter was then placed in a retrograde fashion and the balloon inflated with 45 mL of sterile water. The urinary efflux was noted to be blood tinged. The patient was returned to supine position and anesthesia was reversed. He was transferred to a bed and taken to the postanesthesia care unit in good condition. Of note, the needle and instrument counts were correct at the conclusion of the case. MD JULIOCESAR Uribe/ROLAND /[id number]
== END 2018-06-23 12:35 | disposition home or self-care (01) ==
LOC: OR 06:34 → PACU V 09:52 → MED/SURG 10:48
PROVIDERS: ADMIT Urology; ATTEND Urology
DX: N32.0 Bladder-neck obstruction (principal); Z88.2 Allergy status to sulfonamides; Z91.011 Allergy to milk products; N40.1 Benign prostatic hyperplasia with lower urinary tract symptoms; R33.8 Other retention of urine; R35.0 Frequency of micturition
CPT/HCPCS: 36415; 52601; 71046; 80048; 85025; 88305; 93005; G0378 ×2; J0696; J1100; J2001; J2250; J2370; J2405; J2704